=== PATIENT | female | born 1950 ===

== ENCOUNTER → 2023-09-27 | Outpatient (CLI) | payer OTHER ==
[2023-09-27 11:34] LABS: Albumin, Blood 3.6 g/dL (3.4-5.0); Albumin/Globulin Ratio 0.8 (0.8-1.8); Bilirubin, Total 0.5 mg/dL (0.1-1.0); Bun/Creatinine Ratio 14.9 (12.0-20.0); Calcium, Blood 9.1 mg/dL (8.5-10.1); Creatinine, Blood 1.61 mg/dL (0.40-1.00); Globulin, Blood 4.4 g/dL (2.2-4.0); Potassium, Blood 3.1 mmol/L (3.5-5.5)
== END | disposition home or self-care (01) ==
LOC: LAB 08:31 → LAB SHORT 08:31
PROVIDERS: Physician Assistant
DX: E87.6 Hypokalemia (principal)
CPT/HCPCS: 36415; 80053

== ENCOUNTER 2024-03-10 02:55 | Inpatient (IN) | payer OTHER ==
[~2024-03-10] VITALS: Ht 152.4 cm; Wt 70.7 kg
[2024-03-10] MEDS ORDERED: Albuterol 2.5 MG/3 ML VIAL INH SCH (03:00)
[2024-03-10] MEDS ORDERED: IPRAT-ALBUT 0.5-3 ML NEB (03:09)
[2024-03-10] MEDS ORDERED: ELIQUIS5 M3 PO (03:09)
[2024-03-10] MEDS ORDERED: LIPITOR80 MG PO (03:10)
[2024-03-10] MEDS ORDERED: GABA100 PO (03:10)
[2024-03-10] MEDS ORDERED: CARVEDILOL6.25 MG PO (03:10)
[2024-03-10] MEDS ORDERED: OMEP20ER PO (03:10)
[2024-03-10] MEDS ORDERED: KLOR-CON 1010 ME9 PO (03:10)
[2024-03-10] MEDS ORDERED: SPIRIVA RESPIMAT4 G3 INH (03:10)
[2024-03-10] MEDS ORDERED: SOAANZ20 M3 PO (03:11)
[2024-03-10] MEDS ORDERED: DIGOX125 MC1 PO (03:11)
[2024-03-10] MEDS ORDERED: OZEMPIC0.25 MG/02 SQ (03:11)
[2024-03-10] MEDS ORDERED: PROZAC2010 PO (03:11)
[2024-03-10 03:16] LABS: BASOPHILS PERCENT AUTO 1 % (0-2); EOSINOPHILS PERCENT AUTO 4 % (0-6); Hematocrit 40.9 % (33.0-51.0); Hemoglobin 12.6 g/dL (11.5-16.0); IMMATURE GRAN ABSOLUTE AUTO 0.04 K/mm3 (0.00-0.10); IMMATURE GRAN PERCENT AUTO 0 % (0-1); LYMPHOCYTES ABSOLUTE AUTO 3.29 K/mm3 (0.84-5.20); LYMPHOCYTES PERCENT AUTO 24 % (21-46); MONOCYTES ABSOLUTE AUTO 0.86 K/mm3 (0.16-1.47); MONOCYTES PERCENT AUTO 6 % (4-13); Mean Corpuscular HGB 26.3 pg (26.0-34.0); Mean Corpuscular HGB Conc 30.8 g/dL (31.5-36.5); Mean Corpuscular Volume 85 fL (80-100); Mean Platelet Volume 10.1 fL (9.1-12.4); NEUTROPHILS ABSOLUTE AUTO 9.05 K/mm3 (1.96-9.15); NEUTROPHILS PERCENT AUTO 65 % (41-73); Platelet Count 360 K/mm3 (150-400); RDW Coefficient Variation 15.4 % (11.7-14.2); RDW Standard Deviation 48.2 fL (35.1-46.3); White Blood Cell Count 13.94 K/mm3 (4.00-11.30)
[2024-03-10 03:38] LABS: Albumin, Blood 3.3 g/dL (3.4-5.0); Albumin/Globulin Ratio 0.9 (0.8-1.8); Bilirubin, Total 0.5 mg/dL (0.1-1.0); Bun/Creatinine Ratio 19.8 (12.0-20.0); Creatinine, Blood 0.91 mg/dL (0.40-1.00); Globulin, Blood 3.8 g/dL (2.2-4.0); Magnesium, Blood 1.8 mg/dL (1.6-2.4); Potassium, Blood 3.9 mmol/L (3.5-5.5); Total Protein, Blood 7.1 g/dL (6.4-8.2)
[2024-03-10] MEDS ORDERED: Magnesium Sulf 2 GM/Water 50ML 50 ML IV ONE (03:50)
[2024-03-10 04:06] LABS: Influenza A, PCR NEGATIVE (NEGATIVE); Influenza B, PCR NEGATIVE (NEGATIVE); Resp Syncytial Virus, PCR NEGATIVE (NEGATIVE); SARS-Cov-2 (COVID-19) PCR, MMC NEGATIVE (NEGATIVE)
[2024-03-10] MEDS ORDERED: Azithromycin 250 MG Tab PO ONE (04:50)
[2024-03-10] MEDS ORDERED: FLU VACC TS2024-25(6MOS UP)/PF 45 MCG/0.5 ML SYRINGE IM SCH (06:15)
[2024-03-10] MEDS ORDERED: Ipratropium/Albuterol SulF 2.5-0.5MG/3 ML Amp INH SCH ×2 (06:15→09:45)
[2024-03-10] MEDS ORDERED: Albuterol 2.5 MG/3 ML VIAL INH PRN (06:15)
[2024-03-10] MEDS ORDERED: MethylPREDNISolone Sod Succ 125 MG Vial IV SCH (08:00)
[2024-03-10 09:41] VITALS: BP 152/69
[2024-03-10] MEDS ORDERED: Gabapentin 100 MG Cap PO PRN (15:35)
[2024-03-10] MEDS ORDERED: Tiotropium Bromide 2.5 MCG/ACT MIST INHAL (10 ACT/4 GM) INH SCH (16:10)
[2024-03-10 16:35] VITALS: BP 135/86
[2024-03-10] MEDS ORDERED: Carvedilol 6.25 MG Tab PO SCH (17:00)
[2024-03-10 19:50] VITALS: BP 120/57
--- NOTE | 2024-03-10 19:52 | NUR ---
ADMIT/ SHIFT SUMMARY PATIENT CAME UP FROM ER ON 4L NC SATTING >92%.CONT PULSE OX MONITORING AND FLUCTUATING BETWEEN 90-96%. IV STEROIDS GIVEN. RT ADMINISTERING NEB TREATMENTS Q4. DR SALAZAR RESTARTED HOME MEDS. PATIENT IS A STAND-BY TO THE BATHROOM, CALLS APPROPRIATELY. ABLE TO MAKE NEEDS KNOWN. NO COMPLAINTS OF PAIN. HAS A PRODUCTIVE COUGH WITH CLEAR OUTPUT. SKIN INTACT. CALL LIGHT IN REACH. PATIENT EDUCATED ON NOT TO USE HOME MEDS, INHALER/PILL BOX PLACED IN BAG IN CLOSET, PATIENT VERBALLY AGREED.
[2024-03-10] MEDS ORDERED: Guaifenesin/Dextromethorphan Syrup 5 ML UDC PO PRN (20:30)
[2024-03-10] MEDS ORDERED: Apixaban 5 MG Tab PO SCH (21:00)
[2024-03-10] MEDS ORDERED: Melatonin 5 MG Tablet PO PRN (21:30)
[2024-03-11 03:09] VITALS: BP 133/76
[2024-03-11] MEDS ORDERED: Omeprazole 20 MG CapCR PO SCH (06:00)
[2024-03-11 07:06] VITALS: BP 121/61
--- NOTE | 2024-03-11 07:28 | NUR ---
SHIFT SUMMARY: A&Ox4, PLEASANT AND COOPERATIVE WITH CARE. VSS ON 4L NC, COMPANY MINER BLASTING IN PLACE. DENIES PAIN. TOLERATING A REGULAR DIET. PT IS SBA/INDEPENDENT TO BR. VOIDING IN TOILET, NO BM THIS SHIFT. BED IN LOWEST POSITION, CALL LIGHT WITHIN REACH. CALLS APPROPRIATELY AND IS ABLE TO ADVOCATE NEEDS EFFECTIVELY.
[2024-03-11] MEDS ORDERED: Torsemide 20 MG TAB PO SCH (09:00)
[2024-03-11] MEDS ORDERED: Enoxaparin 40 MG/0.4 ML SYR SC SCH (09:00)
[2024-03-11] MEDS ORDERED: FLUoxetine HCL 20 MG CAP PO SCH (09:00)
[2024-03-11] MEDS ORDERED: Azithromycin 250 MG Tab PO SCH (09:00)
[2024-03-11] MEDS ORDERED: Atorvastatin 40 MG Tab PO SCH (09:00)
[2024-03-11] MEDS ORDERED: ALBU90OI INH (11:53)
[2024-03-11 15:11] VITALS: BP 123/62
--- NOTE | 2024-03-11 17:30 | NUR ---
SHIFT SUMMARY PT IS A/OX4. SBA TO BATHROOM TO ASSIST WITH LINES AND D/T SOB WITH EXERTION. PT ON 3L O2 THROUGHOUT THIS SHIFT, SATS MAINTAINING >88% AT REST, DROPPING IN THE 80'S DURING EXERTION. PRN RUBUTUSSIN GIVEN X2 THIS SHIFT. PT REPORT INCREASING COUGH AND PHLEGM PRODUCTION THIS AFTERNOON. PT COOPERATIVE WITH CARE AND CALLS APPROPRIATELY.
[2024-03-11 19:29] VITALS: BP 112/72
--- NOTE | 2024-03-12 04:18 | NUR ---
SHIFT SUMMARY ADMITTED FOR COPD EXACERBATION. FULL CODE. PLAN IS FOR STEROIDS, PO ANTIB RX, AND RT TX'S. REGULAR DIET. A&O X4. STANDBY ASSIST - BRP. 3 LPM O2 IS BASELINE. SHE DOES LIVE ALONE. NO NEW CONCERNS THIS SHIFT.
[2024-03-12 04:31] VITALS: BP 117/44
[2024-03-12 05:20] LABS: BASOPHILS ABSOLUTE AUTO 0.02 K/mm3 (0.00-0.23); BASOPHILS PERCENT AUTO 0 % (0-2); EOSINOPHILS PERCENT AUTO 0 % (0-6); Hematocrit 35.8 % (33.0-51.0); Hemoglobin 11.2 g/dL (11.5-16.0); IMMATURE GRAN ABSOLUTE AUTO 0.14 K/mm3 (0.00-0.10); IMMATURE GRAN PERCENT AUTO 1 % (0-1); LYMPHOCYTES ABSOLUTE AUTO 1.05 K/mm3 (0.84-5.20); LYMPHOCYTES PERCENT AUTO 6 % (21-46); MONOCYTES ABSOLUTE AUTO 0.27 K/mm3 (0.16-1.47); MONOCYTES PERCENT AUTO 2 % (4-13); Mean Corpuscular HGB 26.2 pg (26.0-34.0); Mean Corpuscular HGB Conc 31.3 g/dL (31.5-36.5); Mean Corpuscular Volume 84 fL (80-100); Mean Platelet Volume 10.5 fL (9.1-12.4); NEUTROPHILS PERCENT AUTO 92 % (41-73); Platelet Count 334 K/mm3 (150-400); RDW Coefficient Variation 15.8 % (11.7-14.2); Red Blood Cell Count 4.28 M/mm3 (3.80-5.20); White Blood Cell Count 18.58 K/mm3 (4.00-11.30)
[2024-03-12 05:32] LABS: Albumin, Blood 2.9 g/dL (3.4-5.0); Bilirubin, Total 0.3 mg/dL (0.1-1.0); Bun/Creatinine Ratio 29.5 (12.0-20.0); Calcium, Blood 9.2 mg/dL (8.5-10.1); Creatinine, Blood 1.32 mg/dL (0.40-1.00); Potassium, Blood 3.9 mmol/L (3.5-5.5); Total Protein, Blood 5.9 g/dL (6.4-8.2)
[2024-03-12 07:51] VITALS: BP 126/64
[2024-03-12] MEDS ORDERED: Ipratropium/Albuterol SulF 2.5-0.5MG/3 ML Amp INH SCH (11:25)
[2024-03-12] MEDS ORDERED: Acetylcysteine 200 MG/ML 4ML Vial INH SCH (11:25)
[2024-03-12] MEDS ORDERED: PredniSONE 20 MG Tab PO SCH (15:00)
[2024-03-12] MEDS ORDERED: Cefdinir 300 MG Cap PO SCH (15:00)
[2024-03-12 16:01] VITALS: BP 115/73
--- NOTE | 2024-03-12 17:49 | NUR ---
SHIFT SUMMARY: PT A/O X4. PLEASANT AND COOPERATIVE WITH CARE. PT REMAINS SOB WITH HARSH, BARKING COUGH. COUGH MEDS GIVEN X2 THIS SHIFT. PT REMAINS ON 4L NC. ON CONT BIOX. IV STEROIDS CHANGED PT PO PREDNISONE. PT WILL NEED HOME 02 EVAL PRIOR TO D/C. CALL LIGHT IN REACH. BED IN LOWEST POSITION.
[2024-03-12 19:18] VITALS: BP 132/93
[2024-03-13 03:05] VITALS: BP 123/60
--- NOTE | 2024-03-13 04:47 | NUR ---
SHIFT SUMMARY PATIENT HAD NO ACUTE CHANGES. AXOX 4 AND SBA TO BR. ON 3.5 L O2 NC. ROBITTUSIN 10 mL GIVEN FOR COUGH AND MELATONIN GIVEN FOR INSOMNIA. RT IN FOR BREATHING TX. PIV INTACT. DENIES CHEST PAIN, SOB, AND N/V. VSS/AFEBRILE. SLEPT MOST OF THE SHIFT. CALL LIGHT IN REACH. BED IN LOWEST POSITION. WILL CONTINUE TO MONITOR UNTIL DAY SHIFT NURSE ASSUMES CARE.
[2024-03-13 07:30] VITALS: BP 123/62
[2024-03-13] MEDS ORDERED: Ipratropium/Albuterol SulF 2.5-0.5MG/3 ML Amp INH SCH (13:40)
[2024-03-13 15:41] VITALS: BP 120/57
[2024-03-13] MEDS ORDERED: Acetylcysteine 200 MG/ML 30ml Inhalation INH SCH (17:00)
--- NOTE | 2024-03-13 17:52 | NUR ---
PT STATES FEELS SOME BETTER TODAY WITH REGULAR DOSING OF ROBITUSSIN. CONTINUES TO BE ON 4L O2. NO C/O PAIN. AMBULATES SELF TO BATHROOM. STATES IS HOPEFUL TO BE STABLE ENOUGH TO GO HOME TOMORROW. BED IN LOW POSITION, CALL LITE IN REACH, CALLS APPROP
[2024-03-13 20:35] VITALS: BP 120/57
--- NOTE | 2024-03-14 04:07 | NUR ---
SHIFT SUMMARY PATIENT HAD NO ACUTE CHANGES. AXOX 4 AND SBA TO BR. ON 3.5 L O2 NC. RT IN FOR BREATHING TX. ROBUTUSSIN 10 mL GIVEN FOR COUGH X TWO. DENIES CHEST PAIN AND N/V. VSS/AFEBRILE. PV INTCT. MELATONIN 5 MG GIVEN FOR INSOMNIA. COOPERATIVE WITH CARE. CALL LIGHT IN REACH. BED IN LOWEST POSITION. WILL CONTINUE TO MONITOR UNTIL DAY SHIFT NURSE ASSUMES CARE.
[2024-03-14 05:39] VITALS: BP 130/87
[2024-03-14 07:02] VITALS: BP 127/82
[2024-03-14] MEDS ORDERED: Acetylcysteine 200 MG/ML 4ML Vial INH SCH (11:20)
--- NOTE | 2024-03-14 14:53 | NUR ---
PT RESTING QUIETLY IN BED, HAS BEEN PLEASANT AND COOPERATIVE T/O THE DAY, UP INDEP IN THE ROOM, DOES GET SOB WITH ANY ACTIVITY, O2 REMAINS AT 4L, WILL CONT TO MONITOR
[2024-03-14 15:47] VITALS: BP 90/46
--- NOTE | 2024-03-14 17:03 | NUR ---
REPORT ON PT WAS TAKEN @ 8013 FROM STUART RASMUSSEN. NO CHANGES HAVE BEEN MADE
[2024-03-14 17:17] VITALS: BP 118/66
[2024-03-14 20:35] VITALS: BP 120/67
[2024-03-14 20:45] VITALS: BP 109/62
--- NOTE | 2024-03-15 04:54 | NUR ---
SHIFT SUMMARY 73 YR F ADMITTED ON 03/12/24. FULL CODE. NO ACUTE CHANGES THIS SHIFT. PT APPEARS TO HAVE RESTED COMFORTABLY THROUGHOUT THIS SHIFT. NO C/O PASIN OR DISCOMFORT. SHE IS PLEASANT AND COOPERATIVE W/ CARE. INDEPENDANT TO THE BATHROOM. 3 L O2 BY NC. BED IN LOW POSITION AND CALL LIGHT IN REACH.
[2024-03-15 06:03] VITALS: BP 111/56
[2024-03-15 08:07] VITALS: BP 140/109
[2024-03-15 09:54] VITALS: BP 99/55
[2024-03-15 15:21] VITALS: BP 113/87
--- NOTE | 2024-03-15 15:46 | NUR ---
SHIFT SUMMARY PATIENT CONTINUES TO REQUIRE 3 LITERS CONTINUOUS OXYGEN, PULSE OX IN PLACE. LUNG SOUNDS WHEEZY, COARSE, RHONCHI, DIMINISHED. REPORTS FEELING CHEST HEAVINESS WHEN BREATHING TREATMENTS ARE NOT ADMINISTERED CLOSE TO "ON TIME". A/O X4, PLEASANT DEMEANOR. ABLE TO WALK TO BATHROOM INDEPENDENTLY. ABLE TO MAKE NEEDS KNOWN. CALL LIGHT IN REACH, CARES ONGOING.
[2024-03-15] MEDS ORDERED: Lactobacil 2-S.Thermo-Bifido 1 1 Cap PO SCH (18:00)
[2024-03-15 19:44] VITALS: BP 97/46
--- NOTE | 2024-03-16 03:55 | NUR ---
SHIFT SUMMARY 73 YR F ADMITTED ON 03/12/24. FULL CODE. NO ACUTE CHANGES THIS SHIFT. PT STATES SHE IS FEELING BETTER WITH SCHEDULED BREATHING TREATMENTS AND COUGH MEDICINE. NO C/O PAIN OR DISCOMFORT THIS SHIFT. SHE IS PLEASANT, INDEPENDANT, AND COOPERATIVE WITH CARE. O2 SATS ARE MAINTAINING IN THE 90'S. BED IN LOW POSITION AND CALL LIGHT IN REACH.
[2024-03-16 04:07] VITALS: BP 106/63
[2024-03-16 05:18] LABS: BASOPHILS ABSOLUTE AUTO 0.02 K/mm3 (0.00-0.23); BASOPHILS PERCENT AUTO 0 % (0-2); EOSINOPHILS ABSOLUTE AUTO 0.05 K/mm3 (0.00-0.68); EOSINOPHILS PERCENT AUTO 0 % (0-6); Hematocrit 35.2 % (33.0-51.0); Hemoglobin 11.6 g/dL (11.5-16.0); IMMATURE GRAN ABSOLUTE AUTO 0.08 K/mm3 (0.00-0.10); IMMATURE GRAN PERCENT AUTO 1 % (0-1); LYMPHOCYTES ABSOLUTE AUTO 3.82 K/mm3 (0.84-5.20); LYMPHOCYTES PERCENT AUTO 26 % (21-46); MONOCYTES ABSOLUTE AUTO 1.16 K/mm3 (0.16-1.47); MONOCYTES PERCENT AUTO 8 % (4-13); Mean Corpuscular HGB 26.3 pg (26.0-34.0); Mean Corpuscular Volume 80 fL (80-100); NEUTROPHILS ABSOLUTE AUTO 9.47 K/mm3 (1.96-9.15); NEUTROPHILS PERCENT AUTO 65 % (41-73); RDW Coefficient Variation 15.2 % (11.7-14.2); RDW Standard Deviation 43.9 fL (35.1-46.3); Red Blood Cell Count 4.41 M/mm3 (3.80-5.20)
[2024-03-16 05:53] LABS: Bun/Creatinine Ratio 29.4 (12.0-20.0); Calcium, Blood 8.4 mg/dL (8.5-10.1); Creatinine, Blood 0.99 mg/dL (0.40-1.00)
[2024-03-16 06:30] LABS: Mean Platelet Volume 10.4 fL (9.1-12.4); Platelet Count 292 K/mm3 (150-400)
[2024-03-16 07:31] VITALS: BP 108/64
[2024-03-16 12:46] VITALS: BP 115/97
[2024-03-16] MEDS ORDERED: Metoprolol Tartrate 1 MG/ML 5 ML VIAL IV PRN (13:35)
[2024-03-16] MEDS ORDERED: CEFD300 PO (14:41)
[2024-03-16] MEDS ORDERED: VISBIOME 112.51 EACH PO (14:42)
[2024-03-16] MEDS ORDERED: PRED20 PO (14:42)
[2024-03-16] MEDS ORDERED: Q-Tussin100 MG/5 M PO (14:42)
[2024-03-16 14:49] VITALS: BP 106/62
--- NOTE | 2024-03-16 18:22 | NUR ---
SHIFT SUMMARY PT A&OX4 AND ANSWERS QUESTIONS APPROPRIATELY. PT RECEIVED SCHEDULED AND PRN MEDICATIONS. PT TO BE DISCHARGED TODAY BEFORE HR ELEVATED INTO THE 160S. EKG SHOWED AFIB W/ RVR. DR POWELL NOTIFIED, PT PUT ON CONTINUOUS TELEMETRY. PT TO BE HELD ONE MORE NIGHT FOR OBSERVATION. REMAINING VSS, NO ACUTE EVENTS AT THIS TIME. PT REPOSITIONED INDEPENDENTLY. PT RECEIVED A SHOWER INDEPENDENTLY. FALL PRECAUTIONS IN PLACE AND CALL LIGHT IN REACH.
[2024-03-16 21:53] VITALS: BP 127/50
--- NOTE | 2024-03-17 03:18 | NUR ---
SHIFT SUMMARY PT IS PLEASANT, A&O X4, AMBULATES INDEPENDENTLY WITHIN THE HOSPITAL ROOM. NO ACUTE EVENTS DURING THIS SHIFT, TELE: SR@ 75. VSS. PRN GABAPENTIN, MELATONIN AND ROBITUSSIN ADMINISTERED ORDERED AT HS. PT DENIES PAIN/DISCOMFORT OR SOB. BED AT THE LOWEST POSITION, CALL LIGHT W/I REACH. PT IS ABLE TO MAKE HER NEEDS KNOWN AND IS COOPERATIVE WITH CARE. PT AWAITING TO D/C TODAY FROM THE HOSPITAL.
[2024-03-17 05:37] LABS: BASOPHILS ABSOLUTE AUTO 0.01 K/mm3 (0.00-0.23); BASOPHILS PERCENT AUTO 0 % (0-2); EOSINOPHILS ABSOLUTE AUTO 0.03 K/mm3 (0.00-0.68); EOSINOPHILS PERCENT AUTO 0 % (0-6); Hematocrit 36.3 % (33.0-51.0); Hemoglobin 11.5 g/dL (11.5-16.0); IMMATURE GRAN ABSOLUTE AUTO 0.07 K/mm3 (0.00-0.10); IMMATURE GRAN PERCENT AUTO 1 % (0-1); LYMPHOCYTES ABSOLUTE AUTO 3.81 K/mm3 (0.84-5.20); LYMPHOCYTES PERCENT AUTO 25 % (21-46); MONOCYTES ABSOLUTE AUTO 1.14 K/mm3 (0.16-1.47); MONOCYTES PERCENT AUTO 8 % (4-13); Mean Corpuscular HGB 26.5 pg (26.0-34.0); Mean Corpuscular HGB Conc 31.7 g/dL (31.5-36.5); Mean Corpuscular Volume 84 fL (80-100); Mean Platelet Volume 10.6 fL (9.1-12.4); NEUTROPHILS ABSOLUTE AUTO 10.09 K/mm3 (1.96-9.15); NEUTROPHILS PERCENT AUTO 67 % (41-73); Platelet Count 290 K/mm3 (150-400); RDW Coefficient Variation 15.4 % (11.7-14.2); RDW Standard Deviation 46.4 fL (35.1-46.3); Red Blood Cell Count 4.34 M/mm3 (3.80-5.20); White Blood Cell Count 15.15 K/mm3 (4.00-11.30)
[2024-03-17 06:08] LABS: Bun/Creatinine Ratio 26.7 (12.0-20.0); Calcium, Blood 8.5 mg/dL (8.5-10.1); Creatinine, Blood 1.01 mg/dL (0.40-1.00); Potassium, Blood 3.8 mmol/L (3.5-5.5)
[2024-03-17 06:48] VITALS: BP 110/69
[2024-03-17 07:54] VITALS: BP 127/72
[2024-03-17] MEDS ORDERED: Sennosides 8.6 MG Tab PO PRN (13:15)
[2024-03-17] MEDS ORDERED: Mag Hydrox/AL Hydrox/Simeth 30 ML UDC PO PRN (13:15)
[2024-03-17] MEDS ORDERED: Polyethylene Glycol 3350 17 gm PO PRN (13:15)
[2024-03-17 16:25] VITALS: BP 110/58
--- NOTE | 2024-03-17 18:21 | NUR ---
SHIFT SUMMARY. PATIENT IS A&OX4 AND INDEPENDENT IN ROOM. PATIENT HAS A PRODUCTIVE HARSH COUGH THAT SHE TAKES PRN COUGH SYRUP FOR WITH REPORTED IMPROVEMENT. PATIENT IS PLEASANT AND COOPERTAIVE WITH CARE. PATIENT CALLS APPROPRIATELY. PATIENT HAS TELE ON WITH LEADS IN PLACE-NO REPORTED EVENTS THIS SHIFT. PATIENT CONTINUES TO HAVE WHEEZING T/O LUNGS. PLAN IS RE-EVALUATE AND POSSIBLE DISCHARGE HOME ON 03/18/24. BED IS LOCKED IN THE LOWEST POSITION WITH CALL LIGHT IN REACH. CARE IS ONGOING.
[2024-03-17 19:11] VITALS: BP 120/67
--- NOTE | 2024-03-18 03:31 | NUR ---
COVER CUTTER SUMMARY VSS. ALERT AND ORIENETED. COOPERATIVE WITH CARE. CHEERFUL AFFECT. UP AD LALITA, CONTINENT. ON ROOM AIR, SATS IN THE 90'S. MED TELE - SR IN THE 70'S. LUNG SOUNDS CONGESTED, COUGH MEDS GIVEN. HAS BEEN RESTING QUIETLY WITH FEW INERRUPTIONS. ABLE TO REPOSITION SELF IN BED WITHOUT ASSIST FOR COMFORT/SKIN MAINTENENCE. CALL LIGHT IN REACH, RAILS UP X 2 AND BED IN LOW POSITION FOR SAFETY. WILL CONTINUE TO MONITOR
[2024-03-18 03:35] VITALS: BP 115/57
[2024-03-18 07:13] VITALS: BP 115/64
--- NOTE | 2024-03-18 15:46 | NUR ---
DISCHARGE NOTE PATIENT A/OX4, ABLE TO MAKE NEEDS KNOWN. INDEPENDENT IN ROOM. PLEASANT AND COOPERATIVE WT CARE. PATIENT DENIES SHORTNESS OF BREATH, AUSCULTATION OF UPPER BILATERAL LOBES COARSE CRACKLES. CONTINUES WITH INTERMITTENT HACKING PRODUCTIVE COUGH. PATIENT DENIES PAIN. TELEMETRY AND PIV REMOVED PRIOR TO DISCHARGE. DISCHARGE MEDICATIONS AND INSTRUCTIONS DISCUSSED WITH PATIENT AND PATIENT AGREEABLE WITH DISCHARGE PLAN. MEDICATIONS FAXED TO [facility], PER PATIENT REQUEST. PATIENT ASSISTED TO HER SISTER'S VEHICLE VIA WHEELCHAIR AND [facility] STAFF. NO OTHER CONCERNS.
== END 2024-03-18 14:32 | disposition home or self-care (01) | DRG 189 ==
LOC: ER 02:55 → MEDS 02:56
PROVIDERS: Family Medicine; Internal Medicine; Student in an Organized Health Care Education/Training Program; ADMIT Internal Medicine
DX: J96.21 Acute and chronic respiratory failure with hypoxia (principal); J44.1 Chronic obstructive pulmonary disease with (acute) exacerbation; I24.89 Other forms of acute ischemic heart disease; R65.10 Systemic inflammatory response syndrome (SIRS) of non-infectious origin without acute organ dysfunction; I48.91 Unspecified atrial fibrillation; Z79.01 Long term (current) use of anticoagulants; N18.30 Chronic kidney disease, stage 3 unspecified; I12.9 Hypertensive chronic kidney disease with stage 1 through stage 4 chronic kidney disease, or unspecified chronic kidney disease; D72.828 Other elevated white blood cell count; T38.0X5A Adverse effect of glucocorticoids and synthetic analogues, initial encounter
CPT/HCPCS: 0241U; 36415; 71045; 80048; 80053; 82565; 83735; 83880; 84145; 84484; 85025; 85049; 93005; 93010; 94640; 94644; 94664; 94760; 94762; 96365; 96375; 96376; 99285-25; A9270; G0378; J2919; J3475; J7512

== ENCOUNTER 2024-06-15 05:37 | Inpatient (IN) | payer OTHER ==
[~2024-06-15] VITALS: Ht 152.4 cm; Wt 75.0 kg
[~2024-06-15 05:37] MED LIST: ALBU90OI INH; CARVEDILOL6.25 MG PO; CEFD300 PO; DIGOX125 MC1 PO; ELIQUIS5 M3 PO; GABA100 PO; IPRAT-ALBUT 0.5-3 ML NEB; KLOR-CON 1010 ME9 PO; LIPITOR80 MG PO; OMEP20ER PO; OZEMPIC0.25 MG/02 SQ; PRED20 PO; PROZAC2010 PO; Q-Tussin100 MG/5 M PO; SOAANZ20 M3 PO; SPIRIVA RESPIMAT4 G3 INH; VISBIOME 112.51 EACH PO
[2024-06-15 05:52] LABS: Base Excess Venous 8.1 mmol/L; Bicarbonate Venous 30.1 mmol/L (24.0-30.0); PCO2 Venous 61.1 mmHg (38-42); pH Blood Venous 7.35 (7.34-7.37)
[2024-06-15 05:52] LABS: BASOPHILS ABSOLUTE AUTO 0.08 K/mm3 (0.00-0.23); BASOPHILS PERCENT AUTO 1 % (0-2); EOSINOPHILS ABSOLUTE AUTO 0.52 K/mm3 (0.00-0.68); EOSINOPHILS PERCENT AUTO 4 % (0-6); Hematocrit 39.6 % (33.0-51.0); Hemoglobin 12.2 g/dL (11.5-16.0); IMMATURE GRAN ABSOLUTE AUTO 0.05 K/mm3 (0.00-0.10); IMMATURE GRAN PERCENT AUTO 0 % (0-1); LYMPHOCYTES ABSOLUTE AUTO 2.36 K/mm3 (0.84-5.20); LYMPHOCYTES PERCENT AUTO 19 % (21-46); MONOCYTES PERCENT AUTO 6 % (4-13); Mean Corpuscular HGB 26.6 pg (26.0-34.0); Mean Corpuscular HGB Conc 30.8 g/dL (31.5-36.5); Mean Corpuscular Volume 86 fL (80-100); Mean Platelet Volume 9.4 fL (9.1-12.4); NEUTROPHILS PERCENT AUTO 70 % (41-73); Platelet Count 326 K/mm3 (150-400); RDW Standard Deviation 50.6 fL (35.1-46.3); Red Blood Cell Count 4.59 M/mm3 (3.80-5.20); White Blood Cell Count 12.51 K/mm3 (4.00-11.30)
[2024-06-15] MEDS ORDERED: Albuterol 2.5 MG/3 ML VIAL INH ONE (05:55)
[2024-06-15] MEDS ORDERED: CefTRIAXone Sodium 1,000 MG in NS 50 ML IV ONE (06:05)
[2024-06-15] MEDS ORDERED: Doxycycline Hyclate 100 MG in Dextrose 5% 250 ML IV ONE (06:05)
[2024-06-15] MEDS ORDERED: Doxycycline Hyclate 100 MG TAB PO ONE (06:05)
[2024-06-15] MEDS ORDERED: NS 1,000 ML IV SCH (06:05)
[2024-06-15 06:10] LABS: Albumin, Blood 3.3 g/dL (3.4-5.0); Albumin/Globulin Ratio 0.9 (0.8-1.8); Bilirubin, Total 0.4 mg/dL (0.1-1.0); Creatinine, Blood 0.81 mg/dL (0.40-1.00); Globulin, Blood 3.6 g/dL (2.2-4.0); Magnesium, Blood 1.9 mg/dL (1.6-2.4); Potassium, Blood 3.5 mmol/L (3.5-5.5); Total Protein, Blood 6.9 g/dL (6.4-8.2)
[2024-06-15 06:29] LABS: Influenza A, PCR NEGATIVE (NEGATIVE); Influenza B, PCR NEGATIVE (NEGATIVE); Resp Syncytial Virus, PCR NEGATIVE (NEGATIVE); SARS-Cov-2 (COVID-19) PCR, MMC NEGATIVE (NEGATIVE)
[2024-06-15] MEDS ORDERED: Albuterol 2.5 MG/3 ML VIAL INH SCH (06:45)
[2024-06-15] MEDS ORDERED: FLU VACC TS2024-25(6MOS UP)/PF 45 MCG/0.5 ML SYRINGE IM SCH (07:35)
[2024-06-15] MEDS ORDERED: Lactobacil 2-S.Thermo-Bifido 1 1 Cap PO SCH (09:00)
[2024-06-15] MEDS ORDERED: Albuterol 2.5 MG/3 ML VIAL INH PRN (11:05)
[2024-06-15] MEDS ORDERED: Ipratropium/Albuterol SulF 2.5-0.5MG/3 ML Amp INH SCH (11:05)
[2024-06-15] MEDS ORDERED: Insulin Regular 100 UNIT/ML 10ML Vial SC SCH (11:30)
[2024-06-15] MEDS ORDERED: MethylPREDNISolone Sod Succ 125 MG Vial IV SCH (12:00)
[2024-06-15 12:47] VITALS: BP 133/89
[2024-06-15] MEDS ORDERED: Gabapentin 100 MG Cap PO PRN (13:35)
[2024-06-15 15:45] VITALS: BP 126/62
[2024-06-15] MEDS ORDERED: LORazepam 2 MG/ML 1ML Injection IV PRN (16:50)
[2024-06-15] MEDS ORDERED: Guaifenesin/Dextromethorphan Syrup 5 ML UDC PO PRN (16:55)
[2024-06-15] MEDS ORDERED: Carvedilol 6.25 MG Tab PO SCH (17:00)
--- NOTE | 2024-06-15 17:34 | NUR ---
SHIFT SUMMARY PT REMAINS ALERT AND ORIENTED. PT ANXIOUS ABOUT BREATHING THIS AFTERNOON AND MEDICATED PER EMAR. PT HAS BEEN ON BIPAP FOR APPROXIMATELY 2 AND HALF HOURS AT 16/8 AND 65% FIO2 WITH SATS ABOVE 89%. RR IN THE MID TO HIGH 20'S. PT STATES BREATHING FEELS LABORED. FAN PROVIDED. PT ABLE TO STAND AND TRANSFER TO BSC, BUT WAS INCONTINENT OF URINE. PT CLEANED AND NEW ATTENDS APPLIED. HR REMAINS SINUS TACH 110'S. PT ABLE TO REPOSITION HERSELF INDEPENDENTLY. WILL REPORT OFF TO ONCOMING RN
[2024-06-15 19:14] VITALS: BP 126/57
--- NOTE | 2024-06-15 19:27 | NUR ---
ASSUMPTION NOTE: THIS RN TO ASSUME CARE. DAY NURSE AND THIS RN DID BEDSIDE SHIFT REPORT AND PATIENT REPORTED HIGH ANXIETY WHEN THIS RN MENTIONED PLACING THE BIPAP ON DUE TO PATIENT SATTING AROUND 90% ON 15 LITERS CURRENTLY. PATIENT STATED SHE WOULD PREFER NOT TOO BUT WILL DO WHAT'S NEEDED TO GET HER BETTER. VITAL SIGNS TAKEN, PATIENT STABLE AND LAB CAME IN TO DRAW PATIENTS TROPONIN. PATIENT HAS CALL LIGHT WITHIN REACH, BED IN LOWEST POSITION & DENYING NEEDING ANYTHING AT THE MOMENT.
[2024-06-15] MEDS ORDERED: GuaiFENesin 600 MG TabCR PO SCH (21:00)
[2024-06-15] MEDS ORDERED: Doxycycline Hyclate 100 MG in Dextrose 5% 250 ML IV SCH (21:00)
[2024-06-15] MEDS ORDERED: Apixaban 5 MG Tab PO SCH (21:00)
[2024-06-15] MEDS ORDERED: HyDROXyzine HCl 25 MG Tab PO PRN (21:06)
[2024-06-16] VITALS (8 sets, daily range): BP systolic 105–142; BP diastolic 51–117
--- NOTE | 2024-06-16 01:11 | NUR ---
REFUSAL OF BIPAP: PATIENT TOOK OF BIPAP MACHINE SHE STATED "THE NOSE PIECE YOU PUT ON WAS DROWNING ME, I KEPT BREATHING IT IN AND IT MADE IT HARDER TO BREATH". THIS RN NOTIFIED HER WE COULD ADJUST IT AND PLACE IT WHERE IT SHOULD BE. PATIENT REFUSED & PLACED THE NASAL CANNULA ON. PATIENT CONTINEUS TO DESAT IN THE 80'S AND WAS COUGHING. THIS RN EDUCATED PATIENT SHOULD WEAR HER BIPAP MACHINE HER OXYGEN SATURATION CONTINUES TO DROP AND SHE IS AT THE HIGHEST O2 LEVEL WHILE WEARING THE NASAL CANNULA. PATIENT REFUSED AND STATED "WE'LL SEE IF I WEAR THAT AGAIN". THIS RN GAVE HER SOME ANTI ANXIETY MEDS AND STATED WE WOULD PUT THE BIPAP ON SHORTLY ONCE THE ORAL MEDICATION KICKED IN. PT STATED "WE WILL SEE IF I CAN WEAR THAT". PATIENT AWARE AND EDUCATED THAT IF SHE CANNOT TOLERATE THE BIPAP AND CONTINEUS TO DESAT WHILE WEARING THE NASAL CANNULA THERE IS A CHANCE SHE WILL NEED TO BE INTUBATED. PATIENT VERBALIZED UNDERSTANDING BY STATING "I KNOW, I HAVE HAD IT IN THE PAST". THIS RN NOTIFIED CHARGE AND HE IS AWARE.
--- NOTE | 2024-06-16 04:48 | NUR ---
END OF SHIFT SUMMARY: PATIENT IS ALERT AND ORIENTED X4 AND COOPERATIVE WITH HER CARE. IS ABLE TO MAKE NEEDS KNOWN, USES CALL LIGHT APPROIRATELY. PATIENT IS ON TELE SHOWING SINUS RHYTHM TO SINUS TACH WITH RATE BETWEEN 80-112. SATTING >88% ALTERNATING BETWEEN BIPAP & AIRVO. PATIENT THROUGHOUT THE NIGHT TOLERATED THE BIPAP WITH NEEDING BREAKS & SOME ANXIETY MEDICATIONS. PATIENT SWITCHED TO AIRVO THROUGHOUT THE SHIFT SHE WAS AT 15 LITERS ON THE HEATED HIGH FLOW AND CONTINUED TO DESAT. PATIENT IS VERY ANXIOUS AT TIMES WHEN WEARING THE BIPAP AND OFTEN STATES SHE FEELS LIKE SHE IS DROWNING . PATIENT WAS EDUCATED ON THE BENEFIT OF WEARING THE BIPAP THROUGHOUT THE SHIFT AND RECEPTIVE TO KNOWING AND WAS COOPERATIVE WITH TRYING TO WEAR THE MASK. PATIENT WAS ABLE TO GET SOME REST THROUGHOUT THE SHIFT. NO REPORTING ANYTHING IS NEEDED AT THIS TIME. HAS THE BED IN LOWEST POSITION AND CALL LIGHT WITHIN REACH.
[2024-06-16 04:54] LABS: BASOPHILS ABSOLUTE AUTO 0.02 K/mm3 (0.00-0.23); BASOPHILS PERCENT AUTO 0 % (0-2); EOSINOPHILS ABSOLUTE AUTO 0.01 K/mm3 (0.00-0.68); EOSINOPHILS PERCENT AUTO 0 % (0-6); Hematocrit 34.9 % (33.0-51.0); Hemoglobin 11.1 g/dL (11.5-16.0); IMMATURE GRAN ABSOLUTE AUTO 0.07 K/mm3 (0.00-0.10); IMMATURE GRAN PERCENT AUTO 0 % (0-1); LYMPHOCYTES ABSOLUTE AUTO 1.28 K/mm3 (0.84-5.20); LYMPHOCYTES PERCENT AUTO 7 % (21-46); MONOCYTES ABSOLUTE AUTO 0.22 K/mm3 (0.16-1.47); MONOCYTES PERCENT AUTO 1 % (4-13); Mean Corpuscular HGB 26.6 pg (26.0-34.0); Mean Corpuscular HGB Conc 31.8 g/dL (31.5-36.5); Mean Corpuscular Volume 84 fL (80-100); Mean Platelet Volume 9.8 fL (9.1-12.4); NEUTROPHILS ABSOLUTE AUTO 17.16 K/mm3 (1.96-9.15); NEUTROPHILS PERCENT AUTO 91 % (41-73); Platelet Count 324 K/mm3 (150-400); RDW Coefficient Variation 16.2 % (11.7-14.2); RDW Standard Deviation 49.4 fL (35.1-46.3); Red Blood Cell Count 4.18 M/mm3 (3.80-5.20); White Blood Cell Count 18.76 K/mm3 (4.00-11.30)
[2024-06-16 05:17] LABS: Bun/Creatinine Ratio 30.5 (12.0-20.0); Calcium, Blood 9.3 mg/dL (8.5-10.1); Creatinine, Blood 0.82 mg/dL (0.40-1.00); Potassium, Blood 3.5 mmol/L (3.5-5.5)
[2024-06-16] MEDS ORDERED: Omeprazole 20 MG CapCR PO SCH (06:00)
[2024-06-16] MEDS ORDERED: CefTRIAXone Sodium 1,000 MG in NS 100 ML IV SCH (08:00)
[2024-06-16] MEDS ORDERED: Atorvastatin 40 MG Tab PO SCH (09:00)
[2024-06-16] MEDS ORDERED: Torsemide 20 MG TAB PO SCH (09:00)
[2024-06-16] MEDS ORDERED: FLUoxetine HCL 20 MG CAP PO SCH (09:00)
[2024-06-16] MEDS ORDERED: Enoxaparin 40 MG/0.4 ML SYR SC SCH (09:00)
--- NOTE | 2024-06-16 17:44 | NUR ---
PT SUMMARY; PT HAS BEEN ON AIRVO SETTINGS AT 50L 70% FIO2, SATS KEPT ABOVE 90% PT DESATS TO LOW 80S RECOVERS VIA PURSED LIP BREATHING PT ALSO GETS VERY ANXIOUS HYDROXYZINE WAS GIVEN X1 FOR THE SHIFT, BIPAP 16/18 75% FIO2 AT THE BEDSIDE PT ABLE TO USE THIS AFTERNOON TOLERATED FOR A COUPLE OF HRS. HRR ST 90'S, SBP 110-130'S, AFEBRILE. PT DENIES ANY CHEST PAIN/PRESSURE. PT HAS BEEN IN BED T/O SHIFT DUE TO RESPIRATORY DEMANDS PT ABLE TO REPOSITION SELF IN BED. TOELRATING PO INTAKE AT THIS TIME. BRETHING TX PER RT, IV ABX AND STEROIDS GIVEN. PT HAS BEEN CALLING APPROPRIATELY WILL REPORT TO ONCOMING SHIFT
[2024-06-16] MEDS ORDERED: Melatonin 3 MG Tab PO ONE (21:05)
[2024-06-17 04:12] VITALS: BP 99/60
--- NOTE | 2024-06-17 04:50 | NUR ---
SHIFT SUMMARY NO ACUTE CHANGES OVERNIGHT. PT REMAINS A&OX4. VSS ON BIPAP AND AIRVO INTERCHANGED SATS >90% HOWEVER WITH ACTIVITY PT DESATS QUICKLY BUT WITH QUICK RECOVERY. REMAINS ON TELE NSR/ST 90s-100s. PT SBA TO BSC THROUGHOUT NIGHT. NO FURTHER QUESTIONS OR CONCERNS AT THIS TIME. WILL CONTINUE WITH PLAN OF CARE AND REPORT TO ONCOMING NURSE.
[2024-06-17 05:04] LABS: BASOPHILS ABSOLUTE AUTO 0.02 K/mm3 (0.00-0.23); BASOPHILS PERCENT AUTO 0 % (0-2); EOSINOPHILS PERCENT AUTO 0 % (0-6); Hematocrit 32.7 % (33.0-51.0); Hemoglobin 10.4 g/dL (11.5-16.0); IMMATURE GRAN ABSOLUTE AUTO 0.14 K/mm3 (0.00-0.10); IMMATURE GRAN PERCENT AUTO 1 % (0-1); LYMPHOCYTES ABSOLUTE AUTO 1.07 K/mm3 (0.84-5.20); LYMPHOCYTES PERCENT AUTO 6 % (21-46); MONOCYTES ABSOLUTE AUTO 0.24 K/mm3 (0.16-1.47); MONOCYTES PERCENT AUTO 1 % (4-13); Mean Corpuscular HGB 26.6 pg (26.0-34.0); Mean Corpuscular HGB Conc 31.8 g/dL (31.5-36.5); Mean Corpuscular Volume 84 fL (80-100); Mean Platelet Volume 9.9 fL (9.1-12.4); NEUTROPHILS ABSOLUTE AUTO 16.21 K/mm3 (1.96-9.15); NEUTROPHILS PERCENT AUTO 92 % (41-73); Platelet Count 330 K/mm3 (150-400); RDW Coefficient Variation 16.8 % (11.7-14.2); RDW Standard Deviation 49.7 fL (35.1-46.3); Red Blood Cell Count 3.91 M/mm3 (3.80-5.20); White Blood Cell Count 17.68 K/mm3 (4.00-11.30)
[2024-06-17 05:19] LABS: Bun/Creatinine Ratio 33.3 (12.0-20.0); Calcium, Blood 8.9 mg/dL (8.5-10.1); Creatinine, Blood 1.02 mg/dL (0.40-1.00); Potassium, Blood 3.6 mmol/L (3.5-5.5)
[2024-06-17 07:15] VITALS: BP 118/51
[2024-06-17 11:45] VITALS: BP 105/64
[2024-06-17 15:46] VITALS: BP 119/61
--- NOTE | 2024-06-17 17:51 | NUR ---
PT SUMMARY; PT REMAINS ON AIRVO SETTINGS DECREASED TO 40L 60% FIO2, SATS KEPT ABOVE 90% FOR THE SHIFT. PT ALSO TOLERATED BEING UP IN THE CHAIR FOR MEALS. PT USING BIPAP NEEDED OR WHEN SLEEPING CURRENT SETTINGS 12/7 55% FIO2, SOB WITH EXERTION BUT ABLE TO RECOVER VIA DEEP BREATHING EXERCISES, OCCASIONAL COUGH PT HAS BEEN USING FLUTTER VALVE. USES BEDSIDE COMMODE FOR TOILETING. WAS GIVEN ANXIETY MEDS ONCE FOR THE SHIFT AND WAS EFFECRIVE. NO OTHER ISSUES ENCOUNTERED WILL REPORT TO ONCOMING SHIFT
--- NOTE | 2024-06-17 19:25 | NUR ---
ASSUMPTION OF CARE ASSEED PT'S CARE AT 1900,BEDSIDE REPORT COMLETED.PT AWAKE WATCHING TV,ON AIRVO AT 40L,66%.PLAN F CARE REVIEWED.PT DENIES PAIN,DENIES SOB AT REST,DENIES NEEDS.CALL LIGHT AND PT'S ITEMS WITHIN REACH.WILL CONTINUE TO MONITOR.
[2024-06-17 20:36] VITALS: BP 106/75
[2024-06-17] MEDS ORDERED: Melatonin 3 MG Tab PO PRN (23:10)
[2024-06-17 23:58] VITALS: BP 99/72
[2024-06-18] VITALS (12 sets, daily range): BP systolic 100–149; BP diastolic 56–116
[2024-06-18 04:04] LABS: BASOPHILS ABSOLUTE AUTO 0.01 K/mm3 (0.00-0.23); BASOPHILS PERCENT AUTO 0 % (0-2); EOSINOPHILS ABSOLUTE AUTO 0.05 K/mm3 (0.00-0.68); EOSINOPHILS PERCENT AUTO 0 % (0-6); Hematocrit 31.9 % (33.0-51.0); Hemoglobin 10.5 g/dL (11.5-16.0); IMMATURE GRAN PERCENT AUTO 1 % (0-1); LYMPHOCYTES ABSOLUTE AUTO 0.93 K/mm3 (0.84-5.20); LYMPHOCYTES PERCENT AUTO 7 % (21-46); MONOCYTES ABSOLUTE AUTO 0.25 K/mm3 (0.16-1.47); MONOCYTES PERCENT AUTO 2 % (4-13); Mean Corpuscular HGB 27.1 pg (26.0-34.0); Mean Corpuscular HGB Conc 32.9 g/dL (31.5-36.5); Mean Corpuscular Volume 82 fL (80-100); Mean Platelet Volume 9.7 fL (9.1-12.4); NEUTROPHILS ABSOLUTE AUTO 12.11 K/mm3 (1.96-9.15); NEUTROPHILS PERCENT AUTO 90 % (41-73); Platelet Count 320 K/mm3 (150-400); RDW Coefficient Variation 16.4 % (11.7-14.2); RDW Standard Deviation 49.2 fL (35.1-46.3); Red Blood Cell Count 3.87 M/mm3 (3.80-5.20); White Blood Cell Count 13.45 K/mm3 (4.00-11.30)
[2024-06-18 04:25] LABS: Bun/Creatinine Ratio 36.2 (12.0-20.0); Calcium, Blood 8.3 mg/dL (8.5-10.1); Creatinine, Blood 1.05 mg/dL (0.40-1.00); Potassium, Blood 3.5 mmol/L (3.5-5.5)
--- NOTE | 2024-06-18 06:00 | NUR ---
SHIFT SUMMARY PT SLEPT MOST OF THE NIGHT,RECEIVED PRN MELATONIN AND PRN HYDROXYZINE AT HS PER PT'S REQUEST.MAINTAINED OXYGEN SATURATION >93% USED THE BIPAP WHILE SLEEPING.PT DENIES PAIN,DENIES SOB,DENIES NEEDS AT THIS TIME.CALL LIGHT AND PT'S ITEMS WITHIN REACH.WILL GIVE REPORT TO DAYSHIFT NURSE FOR CONTINUITY OF CARE.
[2024-06-18] MEDS ORDERED: NS 250 ML IV PRN (09:00)
[2024-06-18 16:39] LABS: PCO2 Arterial 40.2 mmHg (35-45); PO2 Arterial 57.1 mmHg (80-100); pH Blood Arterial 7.51 (7.35-7.45)
--- NOTE | 2024-06-18 16:55 | NUR ---
SHIFT SUMMARY AND TRANSFER TO ICU PATIENT ALERT AND INTERACTIVE DURING BEDSIDE REPORT. PATIENT ON BIPAP AT 65%. BIOX RECONNECTED. PATIENT 82% RT AT BEDSIDE. INCREASED FIO2 AND GAVE BREATHING TX. PATIENT REMAINED ON BIPAP UNTIL BREAKFAST. PATIENT CHANGED TO AIRVO FOR BREAKFAST. PATIENT ABLE TO MAINTAIN BIOX AT 88-92%. PATIENT REQUESTING TO SHOWER. PATIENT ABLE TO WALK TO BR ON HIGH FLOW WITH NON REBREATHER IN PLACE. PATIENT TOLERATED SHOWER WELL AND ABLE TO WALK BACK TO BED. BIOX 85% AFTER SHOWER ON AIRVO. PATIENT PLACED BACK ON BIPAP AND INCREASED TO 75%, PATIENT CONTINUED TO HAVE TROUBLE KEEPING SATS ABOVE 88%. RT INCREASED FIO2 TO 100%. DR GASPAR NOTIFIED. ABG AND CHEST XRAY DONE. PATIENT CONTINUED TO BE ALERT AND INTERACTIVE. RESULTS REPORTED TO DR. GASPAR. PATIENT TRANSFERRED TO ICU WITH THE ASSISTANCE OF ICU CHARGE NURSE. REPORT GIVEN TO VIANEY Steve IN ICU AT BEDSIDE. PATIENT CONTINUED TO BE AWAKE AND INTERACTIVE IN ICU. DR. DE LA ROSA CALLED TO EVALUATE.
[2024-06-18] MEDS ORDERED: Vancomycin HCL 1,750 MG in NS 500 ML IV ONE (17:10)
[2024-06-18] MEDS ORDERED: Piperacillin/Tazobactam Sod 4.5 GM in NS 100 ML IV SCH (17:30)
[2024-06-18] MEDS ORDERED: Furosemide 10 MG/ML 4ML Vial IV SCH (18:00)
[2024-06-18] MEDS ORDERED: Potassium Chloride 20 MEQ TabCR PO ONE (18:00)
[2024-06-18] MEDS ORDERED: dexmedeTOMIDine 100 ML IV SCH (18:05)
--- NOTE | 2024-06-18 18:25 | NUR ---
TRANSFER PT ARRIVED FROM PCU 16 TO ICU 7 VIA BED. PT ALERT AND ORIENTED, WEARING THE BIPAP, FIO2 100%. PT IS TALKING IN FULL SENTENCES THROUGH THE BIPAP, MOVING AROUND. FIO2 WAS SLOWLY TITRATED DOWN TO 70% PT'S SPO2 WAS 99%. SPO2 REMAINED AT 92% UNTIL PT SIMPLY SAT UP IN BED AND SPO2 DROPPED TO THE LOW 80S AND FIO2 HAD TO BE TITRATED BACK UP TO 100%. DR. DE LA ROSA CAME TO BEDSIDE AND GAVE ORDERS FOR CPT. DIVISION ORDER TECHNICIAN RT INFORMED. PUREWICK PLACED AFTER LASIX GIVEN AND PT IS VOIDING CL YELLOW URINE. ANTIBIOTICS INFUSING. PT EXPRESSING SOME ANXIETY RELATED TO THE BIPAP MASK. DR. DE LA ROSA GAVE ORDER FOR PRECEDEX, WHICH IS INFUSING.
[2024-06-18] MEDS ORDERED: MethylPREDNISolone Sod Succ 125 MG Vial IV SCH (21:00)
[2024-06-19] VITALS (25 sets, daily range): BP systolic 104–137; BP diastolic 33–105
[2024-06-19 03:28] LABS: BASOPHILS ABSOLUTE AUTO 0.01 K/mm3 (0.00-0.23); BASOPHILS PERCENT AUTO 0 % (0-2); EOSINOPHILS PERCENT AUTO 0 % (0-6); Hematocrit 32.3 % (33.0-51.0); Hemoglobin 10.6 g/dL (11.5-16.0); IMMATURE GRAN ABSOLUTE AUTO 0.05 K/mm3 (0.00-0.10); IMMATURE GRAN PERCENT AUTO 1 % (0-1); LYMPHOCYTES ABSOLUTE AUTO 0.96 K/mm3 (0.84-5.20); LYMPHOCYTES PERCENT AUTO 10 % (21-46); MONOCYTES ABSOLUTE AUTO 0.27 K/mm3 (0.16-1.47); MONOCYTES PERCENT AUTO 3 % (4-13); Mean Corpuscular HGB 26.8 pg (26.0-34.0); Mean Corpuscular HGB Conc 32.8 g/dL (31.5-36.5); Mean Corpuscular Volume 82 fL (80-100); Mean Platelet Volume 9.8 fL (9.1-12.4); NEUTROPHILS ABSOLUTE AUTO 8.61 K/mm3 (1.96-9.15); NEUTROPHILS PERCENT AUTO 87 % (41-73); Platelet Count 313 K/mm3 (150-400); RDW Coefficient Variation 16.3 % (11.7-14.2); RDW Standard Deviation 48.1 fL (35.1-46.3); Red Blood Cell Count 3.96 M/mm3 (3.80-5.20)
[2024-06-19 03:48] LABS: Bun/Creatinine Ratio 36.6 (12.0-20.0); Calcium, Blood 8.1 mg/dL (8.5-10.1); Creatinine, Blood 1.01 mg/dL (0.40-1.00); Potassium, Blood 3.8 mmol/L (3.5-5.5)
--- NOTE | 2024-06-19 06:06 | NUR ---
SHIFT SUMMARY: NO SIGNIFICANT EVENTS OR CHANGES OVERNIGHT. PT HAS BEEN PLEASANT AND COOPERATIVE AND HAS WORN THE BIPAP CONSISTENTLY ALL NIGHT AND BEEN COMPLIANT WITH CPT. SHE'S A&OX4, BP STABLE, SINUS ARRHYTHMIA 70S-90S WITH OCCASIONAL PVCS. PT DENIES PAIN OR NAUSEA. HAS PRODUCTIVE COUGH. STILL TACHYPNEIC WITH DECLINE IN SPO2 WITH MOVEMENT OR EXERTION THOUGH PT DENIES FEELING SOB.
[2024-06-19] MEDS ORDERED: Potassium Chloride 20 MEQ/15 ML UDC PO SCH (11:00)
--- NOTE | 2024-06-19 13:02 | NUR ---
REASSESSMENT PT HAS BEEN RESTING IN BED THROUGHOUT THE MORNING. SHE REMAINS ALERT AND ORIENTED. SHE SWITCHED FROMT HE BIPAP TO HFNC WHEN SHE GOT HER CPT THIS MORNING AND HAS REMAINED ON THAT. HER FIO2 WAS NIA TO 75%, BUT SHE HAD TO BE TURNED BACK UP TO 90% WHILE HER SISTER WAS VISITING AND PT WAS TALKING. LUGNS CONTINUE TO BE COARSE, DIMMER ON THE L SIDE. COUGHED UP SOME YELLOW SPUTUM WITH CPT. SR IN THE 90S, MAP 85 CURRENTLY. VOIDING USING PUREWICK. EATING WITHOUT DIFFICULTY.
--- NOTE | 2024-06-19 16:51 | NUR ---
SHIFT SUMMARY PT HAS CONTINUED TO BE ALERT AND ORIENTED. SHE HAS REMAINED ON THE HFNC THROUGHOUT THE SHIFT. SHE IS TOLERATING CPT WELL AND USING HER FLUTTER VALVE WELL. LUNGS ARE STILL COARSE. REMAINS IN SR, VOIDING USING THE PURE WICK, EATING WELL.
[2024-06-19] MEDS ORDERED: Vancomycin HCL 1,250 MG in NS 250 ML IV SCH (18:00)
[2024-06-19] MEDS ORDERED: MethylPREDNISolone Sod Succ 125 MG Vial IV SCH (21:00)
[2024-06-20] VITALS (21 sets, daily range): BP systolic 107–144; BP diastolic 54–120
[2024-06-20 03:44] LABS: BASOPHILS PERCENT AUTO 0 % (0-2); EOSINOPHILS ABSOLUTE AUTO 0.01 K/mm3 (0.00-0.68); EOSINOPHILS PERCENT AUTO 0 % (0-6); Hematocrit 34.3 % (33.0-51.0); IMMATURE GRAN ABSOLUTE AUTO 0.07 K/mm3 (0.00-0.10); IMMATURE GRAN PERCENT AUTO 1 % (0-1); LYMPHOCYTES ABSOLUTE AUTO 0.97 K/mm3 (0.84-5.20); LYMPHOCYTES PERCENT AUTO 9 % (21-46); MONOCYTES ABSOLUTE AUTO 0.44 K/mm3 (0.16-1.47); MONOCYTES PERCENT AUTO 4 % (4-13); Mean Corpuscular HGB 26.2 pg (26.0-34.0); Mean Corpuscular HGB Conc 32.1 g/dL (31.5-36.5); Mean Corpuscular Volume 82 fL (80-100); Mean Platelet Volume 9.9 fL (9.1-12.4); NEUTROPHILS ABSOLUTE AUTO 9.05 K/mm3 (1.96-9.15); NEUTROPHILS PERCENT AUTO 86 % (41-73); Platelet Count 340 K/mm3 (150-400); RDW Coefficient Variation 16.1 % (11.7-14.2); White Blood Cell Count 10.54 K/mm3 (4.00-11.30)
[2024-06-20 04:00] LABS: Bun/Creatinine Ratio 37.3 (12.0-20.0); Calcium, Blood 8.3 mg/dL (8.5-10.1); Creatinine, Blood 1.02 mg/dL (0.40-1.00); Magnesium, Blood 2.3 mg/dL (1.6-2.4); Phosphorus, Blood 4.5 mg/dL (2.5-4.9); Potassium, Blood 4.1 mmol/L (3.5-5.5)
--- NOTE | 2024-06-20 05:46 | NUR ---
SHIFT SUMMARY: NO EVENTS OR CHANGES OVERNIGHT. PT APPEARS TO BE IMPROVING, LUNG SOUNDS HAVE IMPROVED. PT STATES SHE FEELS MUCH BETTER. SHE REMAINED ON AIRVO OVERNIGHT WITHOUT ISSUE. HAS MILDLY PRODUCTIVE COUGH. PT STRENGTH IMPROVING AND SHE WAS ABLE TO GET UP IN HER ROOM WITHOUT DYSPNEA.
--- NOTE | 2024-06-20 07:18 | NUR ---
ASSUMPTION OF CARE: ASSUMED CARE OF PATIENT. PATIENT SITTING UP IN BED. PATIENT DENIES PAIN OR DISCOMFORT. PATIENT CURRENTLY ON AIRVO 50L/56%. SPO2 >94%. RR IN THE 10S-LOW 20S. PATIENT DENIES DIFFICULTY BREATHING OR SHORTNESS OF BREATH AT THIS TIME. PER NIGHT RN, PRECEDEX STOPPED SHORTLY BEFORE CHANGE OF SHIFT. PATIENT DENIES ANXIETY AT THIS TIME. VITALS STABLE WITH MAPS >65 AND HR IN THE 60S-70S. PUREWICK IN PLACE AND WORKING CORRECTLY. PATIENT REPORTS SHE HAS BEEN TOLERATING THE CPT WELL.
[2024-06-20] MEDS ORDERED: Sodium Chloride 0.9% Inj 10 ML Vial INH ONE (09:20)
[2024-06-20] MEDS ORDERED: Acetylcysteine 200 MG/ML 4ML Vial INH SCH (13:25)
--- NOTE | 2024-06-20 13:38 | NUR ---
RESPIRATORY STATUS: AFTER UP TO THE TOILET AND RECLINER THIS MORNING, PATIENT HAS CONTINUED TO REQUIRE 80-85% FIO2 TO MAINTAIN SPO2 >90%. PATIENT REPORTS THAT HER BREATHING FEELS HEAVIER. DISCUSSED WITH DR. HIGH. DR. HIGH AT BEDSIDE. NEW ORDERS IN PLACE.
--- NOTE | 2024-06-20 17:59 | NUR ---
SHIFT SUMMARY: NEURO: PATIENT ALERT AND ORIENTED X4 THROUGHOUT THE SHIFT. PATIENT DENIED ANXIETY DURING THE DAY BUT REPORTED THAT SHE DOES HAVE ANXIETY AT NIGHT. PATIENT UP TO THE RECLINER AND BSC TODAY. PATIENT HAS BEEN ABLE TO MAINTAIN HER STRENGTH. RESPIRATORY: PATIENT'S O2 NEEDS REQUIRED STARTING ABOUT MID MORNING. AIRVO FIO2 INCREASED TO 86% TO MAINTAIN AN SPO2 >90%. AT THE TIME OF THIS NOTE, STARTING TO TITRATE DOWN THE FIO2. MARLEY AND LOLIS WANG AT BEDSIDE, FIO2 DECREASED TO 77%. SPO2 AT 94-95%. THROUGHOUT THE SHIFT, PATIENT HAS BEEN UTLIZING HER FLUTTER VALVE. MINIMAL THICK BENÍTEZ SECRETIONS. ONCE BACK IN BED, PATIENT ROTATED MODERATELY TO HER RIGHT SIDE. CARDIAC: PATIENT'S VITALS STABLE WITH MAPS >65. HR IN THE 80S-90S. MILDLY TACHY THIS AFTERNOON FOR ABOUT AN HOUR (HR IN THE LOW 100S). GI/: PATIENT HAS AN EXCELLENT APPETITE. PATIENT ABLE TO VOID WITHOUT DIFFICULTY. ATTENDS IN PLACE. PATIENT HAD FORMED, SOFT, BROWN BOWEL MOVEMENT TODAY. PSYCHSOCIAL: PATIENT CALM AND COOPERATIVE. PATIENT JOKES WITH STAFF. PATIENT RECEPTIVE TO INSTRUCTION. PATIENT REPORTS THAT SHE DOES NOT LIKE TO ASK HER FAMILY FOR RIDES TO APPOINTMENTS.
[2024-06-21] VITALS (12 sets, daily range): BP systolic 87–129; BP diastolic 17–82
[2024-06-21 03:38] LABS: BASOPHILS ABSOLUTE AUTO 0.01 K/mm3 (0.00-0.23); BASOPHILS PERCENT AUTO 0 % (0-2); EOSINOPHILS PERCENT AUTO 0 % (0-6); Hemoglobin 11.1 g/dL (11.5-16.0); IMMATURE GRAN ABSOLUTE AUTO 0.05 K/mm3 (0.00-0.10); IMMATURE GRAN PERCENT AUTO 1 % (0-1); LYMPHOCYTES ABSOLUTE AUTO 0.97 K/mm3 (0.84-5.20); LYMPHOCYTES PERCENT AUTO 10 % (21-46); MONOCYTES ABSOLUTE AUTO 0.36 K/mm3 (0.16-1.47); MONOCYTES PERCENT AUTO 4 % (4-13); Mean Corpuscular HGB 26.4 pg (26.0-34.0); Mean Corpuscular HGB Conc 31.7 g/dL (31.5-36.5); Mean Corpuscular Volume 83 fL (80-100); Mean Platelet Volume 9.9 fL (9.1-12.4); NEUTROPHILS ABSOLUTE AUTO 8.07 K/mm3 (1.96-9.15); NEUTROPHILS PERCENT AUTO 85 % (41-73); Platelet Count 308 K/mm3 (150-400); RDW Coefficient Variation 15.9 % (11.7-14.2); RDW Standard Deviation 47.8 fL (35.1-46.3); Red Blood Cell Count 4.21 M/mm3 (3.80-5.20); White Blood Cell Count 9.46 K/mm3 (4.00-11.30)
[2024-06-21 03:58] LABS: Bun/Creatinine Ratio 31.8 (12.0-20.0); Calcium, Blood 8.1 mg/dL (8.5-10.1); Creatinine, Blood 0.98 mg/dL (0.40-1.00); Potassium, Blood 4.8 mmol/L (3.5-5.5)
--- NOTE | 2024-06-21 06:36 | NUR ---
SHIFT SUMMARY PATIENT SLEPT OFF AND ON THROUGH OUT SHIFT. A&O X4. HR IN THE 70-80'S AND SBP 110-120'S. ON AIRVO 50L/60%. PATIENT USES BEDSIDE COMMODE AND HAS PUREWICK INPLACE OVER NIGHT WITH ATTENDS. HAS POWERGLIDE IN UMM AND PERIPHERAL IN RIGHT AC. PATIENT USES CALL LIGHT WHEN NEEDS NURSE. CAN REPOSITION HERSELF NEEDED FOR COMFORT. CALL LIGHT WITHIN REACH.
--- NOTE | 2024-06-21 18:35 | NUR ---
Summary. Pt doing well this shift. Ambulates with minimal assistance to commode, up in chair most of shift. No acute events this shift. See chart for details
[2024-06-21] MEDS ORDERED: Insulin Regular 100 UNIT/ML 10ML Vial SC SCH (21:00)
[2024-06-21] MEDS ORDERED: TraZODone HCl 50 MG Tab PO SCH (21:00)
[2024-06-22] VITALS (35 sets, daily range): BP systolic 90–163; BP diastolic 47–133
[2024-06-22 03:44] LABS: BASOPHILS ABSOLUTE AUTO 0.01 K/mm3 (0.00-0.23); BASOPHILS PERCENT AUTO 0 % (0-2); EOSINOPHILS PERCENT AUTO 0 % (0-6); Hematocrit 35.3 % (33.0-51.0); Hemoglobin 11.3 g/dL (11.5-16.0); IMMATURE GRAN ABSOLUTE AUTO 0.06 K/mm3 (0.00-0.10); IMMATURE GRAN PERCENT AUTO 1 % (0-1); LYMPHOCYTES ABSOLUTE AUTO 1.08 K/mm3 (0.84-5.20); LYMPHOCYTES PERCENT AUTO 10 % (21-46); MONOCYTES ABSOLUTE AUTO 0.31 K/mm3 (0.16-1.47); MONOCYTES PERCENT AUTO 3 % (4-13); Mean Corpuscular HGB 26.4 pg (26.0-34.0); Mean Corpuscular Volume 83 fL (80-100); Mean Platelet Volume 9.7 fL (9.1-12.4); NEUTROPHILS ABSOLUTE AUTO 9.22 K/mm3 (1.96-9.15); NEUTROPHILS PERCENT AUTO 86 % (41-73); Platelet Count 330 K/mm3 (150-400); RDW Coefficient Variation 15.9 % (11.7-14.2); RDW Standard Deviation 47.6 fL (35.1-46.3); Red Blood Cell Count 4.28 M/mm3 (3.80-5.20); White Blood Cell Count 10.68 K/mm3 (4.00-11.30)
[2024-06-22 04:00] LABS: Calcium, Blood 8.2 mg/dL (8.5-10.1); Creatinine, Blood 0.89 mg/dL (0.40-1.00); Magnesium, Blood 2.1 mg/dL (1.6-2.4); Phosphorus, Blood 3.8 mg/dL (2.5-4.9); Potassium, Blood 4.4 mmol/L (3.5-5.5)
--- NOTE | 2024-06-22 06:13 | NUR ---
SHIFT SUMMARY PATIENT IS A&O X4 AND VERY ANXIOUS ESPECIALLY WHEN SOB. PATIENT TRIED 25MG OF TRAZADONE FOR ANXIETY AND HELP WITH SLEEP LASTED ABOUT 3 HOURS. PATIENT BECOME SOB AND DESATTING INTO THE 80'S, RT WAS CALLED AND AIRVO WAS INCREASED FROM 50L/50% TO 70L/55%. PRECEDEX WAS STARTED @ 0.2MCG/HR. PATIENT O2 CAME BACK UP INTO THE 90'S. PATEINT WAS ABLE TO RELAX AND SLEEP THROUGH THE REST OF SHIFT. SBP IN THE 110-120'S AND HR IN THE 70-80'S. PATIENT HAS A PUREWICK FOR NIGHT TIME WITH ATTENDS. PATIENT WAS NPO AFTER MIDNIGHT DUE TO PROCEDURE IN AM. PATIENT ABLE TO USES CALL LIGHT FOR NEEDS. HAS POWERGLIDE IN UMM AND PERIPHERAL IN RIGHT AC. CALL LIGHT WITHIN REACH.
[2024-06-22] MEDS ORDERED: Acetylcysteine 200 MG/ML 4ML Vial INH SCH (12:00)
[2024-06-22] MEDS ORDERED: FentaNYL Citrate 50 MCG/ML 2 ML Injection IV ONE ×2 (12:15→14:00)
[2024-06-22] MEDS ORDERED: Midazolam HCL 1 MG/ML 5MLVIAL IV ONE ×2 (12:15→14:00)
[2024-06-22] MEDS ORDERED: Lidocaine 2% Jelly Uro-Jet ONE (12:19)
[2024-06-22] MEDS ORDERED: Lidocaine HCl 4% 5 ML SDA INH ONE (12:30)
--- NOTE | 2024-06-22 12:30 | NUR ---
BRONCH: 1244: ORAL ANESTHETIC ADMINISTERED BY DR. HIGH. 1247: BITE BLOCK AND O2 MASK IN PLACE. RT X2 AT BEDSIDE. PRIMARY RN AT BEDSIDE. 1249: 50 MCG FENTANYL ADMINISTERED 1250: 2 MG VERSED ADMINISTERED 1251: INTRODUCTION OF SCOPE. 1251: LIDOCAINE ADMINISTERED X 2 VIA SCOPE BY RT 1252: 2 MG VERSED ADMINISTERED 1253: LIDOCAINE ADMINISTERED VIA SCOPE BY RT 1254: SUSPECTED FOREIGN OBJECT IDENTIFIED 1306: 25 MCG OF FENTANYL ADMINISTERED; 1 MG VERSED ADMINISTERED 1308: LIDOCAINE ADMINISTERED VIA SCOPE BY RT. 1308: FORCEPS INTRODUCED 1311: REMOVAL OF FORCEPS 1313: LIDOCAINE ADMINISTERED VIA SCOPE BY RT 1315: 25 MCG FENTANYL ADMINISTERED 1316: 2 MG VERSED ADMINISTERED 1319: FORCEPS INTRODUCED 1323: FORCEPS REMOVED 1327: 25 MCG FENTANYL ADMINISTERED 1328: BASKET INTRODUCED 1330: BASKET REMOVED 1331: FORCEPS INTRODUCED 1333: FORCEPS REMOVED 1338: RESCUE BASKET INTRODUCED 1342: RESCURE BASKET REMOVED 1344: 2MG VERSED ADMINISTERED 1347: RESCUE BASKET INTRODUCED 1348: LIODCAINE ADMINISTERED VIA SCOPE BY RT 1355: FOREIGN OBJECT REMOVED. BASKET REMOVED. 1356: MUCOMYST 2 ML ADMINISTERED VIA SCOPE BY RT. 1358: END OF BRONCHOSCOPE. VITALS STABLE WITH MAPS >65. BP 124/76. HR 95. SPO2 98%. AIRVO 55L/89%. PT AROUSABLE AND FOLLOWING COMMANDS
[2024-06-22] MEDS ORDERED: FentaNYL Citrate 50 MCG/ML 2 ML Injection ONE (13:24)
[2024-06-22] MEDS ORDERED: Lidocaine HCl 2% 10 ML SDA INH ONE (13:50)
[2024-06-22] MEDS ORDERED: ALPRAZolam 0.25 MG Tab PO PRN (16:30)
--- NOTE | 2024-06-22 18:18 | NUR ---
Summary. Pt continues on Airvo, improvements seen on chest xray after bronch today. Foreign object removed from left lung. Pt tolerated procedure well. No other acute events, see chart for details.
[2024-06-23] VITALS (16 sets, daily range): BP systolic 103–168; BP diastolic 55–108
[2024-06-23 03:48] LABS: BASOPHILS PERCENT AUTO 0 % (0-2); EOSINOPHILS PERCENT AUTO 0 % (0-6); Hematocrit 34.2 % (33.0-51.0); IMMATURE GRAN ABSOLUTE AUTO 0.05 K/mm3 (0.00-0.10); IMMATURE GRAN PERCENT AUTO 1 % (0-1); LYMPHOCYTES ABSOLUTE AUTO 0.84 K/mm3 (0.84-5.20); LYMPHOCYTES PERCENT AUTO 9 % (21-46); MONOCYTES ABSOLUTE AUTO 0.22 K/mm3 (0.16-1.47); MONOCYTES PERCENT AUTO 2 % (4-13); Mean Corpuscular HGB 26.7 pg (26.0-34.0); Mean Corpuscular HGB Conc 32.2 g/dL (31.5-36.5); Mean Corpuscular Volume 83 fL (80-100); Mean Platelet Volume 10.2 fL (9.1-12.4); NEUTROPHILS ABSOLUTE AUTO 8.72 K/mm3 (1.96-9.15); NEUTROPHILS PERCENT AUTO 89 % (41-73); Platelet Count 333 K/mm3 (150-400); Red Blood Cell Count 4.12 M/mm3 (3.80-5.20); White Blood Cell Count 9.83 K/mm3 (4.00-11.30)
[2024-06-23 04:22] LABS: Bun/Creatinine Ratio 34.4 (12.0-20.0); Creatinine, Blood 0.79 mg/dL (0.40-1.00); Potassium, Blood 4.3 mmol/L (3.5-5.5)
--- NOTE | 2024-06-23 05:39 | NUR ---
SHIFT SUMMARY PATIENT HAS SLEPT OFF AND ON THROUGH SHIFT. PATIENT IS A&OX4. PATIENT IS ON AIRVO SETTINGS 40L/50% AND SATTING @ 95%. SBP 110-120'S AND HR 70-80'S. PATIENT GET SUP TO USE BATHROOM IN ROOM AND HAS ATTENDS ON FOR LEAKING BLADDER FROM COUGHING. PATIENT MOVED SELF IN BED FOR REPOSITIONING BUT NEEDS STAND BY ASSIST FOR BATHROOM USE. PATIENT USES CALL LIGHT WHEN NEEDED. PATIENT HAS POWERGLIDE IN UMM AND 20G AC IN RIGHT. CALL LIGHT WITHIN REACH.
--- NOTE | 2024-06-23 07:30 | NUR ---
CARE ASSUMPTION DURING BEDSIDE SHIFT REPORT W STEVE RN THE PT IS SITTING UPRIGHT IN BED RECIEVING BREATHING TX PER RT. PT IS ALERT AND COMMUNICATING APPROPRIATELY W STAFF. PT APPEARS STRONG AND HAS PRODUCTIVE COUGH AT TIME OF INTERACTION. MONITOR SHOWING SR 80'S AND SPO2 >92% W AIRVO SETTINGS 3OL AND 35% FIO2. PT'S THIS RN INTRDUCING SELF TO PT AND EXPRESSING INTENT TO RETURN TO ASSIST THE PT TO THE CHAIR BEFORE BREAKFAST. PT AGREEING TO PLAN AND RESUMES BREATHING TX.
--- NOTE | 2024-06-23 16:34 | NUR ---
THIS RN ASSUMED CARE OF PT AT 1630. PT IS ALERT AND ORIENTED X4, CALLS APPROPRIATELY. PT HEART RATE IN THE 90s, BLOOD PRESSURE STABLE AT 124/98, PT DENIES CHEST PAIN. PT IS ON ROOM AIR SOUNDS WHEEZY/DIMINISHED, SATTING >92%, PT DENIES SHORTNESS OF BREATH. PT IS ABLE TO GET UP INDEPENDENTLY AND USES BATHROOM INDEPENDENTLY. NO OTHER INTERVENTIONS AT THIS TIME. PLAN OF CARE CONTINUED.
--- NOTE | 2024-06-23 17:50 | NUR ---
PT SUMMARY PT IS SITTING COMFORTABLLY IN BED, NO ACUTE EVENTS TO REPORT THROUGHOUT THE DAY, NO OTHER INTERVENTIONS AT THIS TIME. POSSIBLE DISCHARGE IN THE AM. PLAN OF CARE CONTINUED.
[2024-06-23] MEDS ORDERED: Amoxicillin/Clavulanate K 875 MG Tab PO SCH (21:00)
[2024-06-23] MEDS ORDERED: Acetylcysteine 200 MG/ML 4ML Vial INH SCH (23:30)
[2024-06-24] VITALS (7 sets, daily range): BP systolic 102–139; BP diastolic 63–75
[2024-06-24 04:00] LABS: BASOPHILS ABSOLUTE AUTO 0.01 K/mm3 (0.00-0.23); BASOPHILS PERCENT AUTO 0 % (0-2); EOSINOPHILS ABSOLUTE AUTO 0.07 K/mm3 (0.00-0.68); EOSINOPHILS PERCENT AUTO 1 % (0-6); Hematocrit 33.5 % (33.0-51.0); Hemoglobin 10.8 g/dL (11.5-16.0); IMMATURE GRAN PERCENT AUTO 1 % (0-1); LYMPHOCYTES ABSOLUTE AUTO 3.79 K/mm3 (0.84-5.20); LYMPHOCYTES PERCENT AUTO 26 % (21-46); MONOCYTES ABSOLUTE AUTO 1.44 K/mm3 (0.16-1.47); MONOCYTES PERCENT AUTO 10 % (4-13); Mean Corpuscular HGB 26.6 pg (26.0-34.0); Mean Corpuscular HGB Conc 32.2 g/dL (31.5-36.5); Mean Corpuscular Volume 83 fL (80-100); Mean Platelet Volume 9.9 fL (9.1-12.4); NEUTROPHILS ABSOLUTE AUTO 9.31 K/mm3 (1.96-9.15); NEUTROPHILS PERCENT AUTO 63 % (41-73); Platelet Count 335 K/mm3 (150-400); RDW Standard Deviation 48.1 fL (35.1-46.3); Red Blood Cell Count 4.06 M/mm3 (3.80-5.20); White Blood Cell Count 14.72 K/mm3 (4.00-11.30)
[2024-06-24 04:19] LABS: Bun/Creatinine Ratio 37.1 (12.0-20.0); Calcium, Blood 8.3 mg/dL (8.5-10.1); Creatinine, Blood 0.84 mg/dL (0.40-1.00); Potassium, Blood 4.2 mmol/L (3.5-5.5)
--- NOTE | 2024-06-24 05:31 | NUR ---
SHIFT SUMMARY PATIENT SLEPT THROUGH SHIFT. A&O X4 USES CALL LIGHT NEEDED. WALKS TO TOILET IN ROOM. WEARS ATTENDS FOR COMFORT FOR LEAKING OF BLADDER FROM COUGHING. SBP 115-130'S AND HR IN THE 70'S. HAS POWERGLIDE IN UMM SALINE LOCKED. CALL LIGHT WITHIN REACH.
[2024-06-24] MEDS ORDERED: TORSE20 PO (10:53)
[2024-06-24] MEDS ORDERED: AMOCLA875 PO (10:55)
[2024-06-24] MEDS ORDERED: GUAI600T33 PO (10:56)
[2024-06-24] MEDS ORDERED: VISBIOME 112.51 EACH PO (10:57)
[2024-06-24] MEDS ORDERED: Prednisone20 MG PO (10:59)
[2024-06-24] MEDS ORDERED: Acetylcysteine 200 MG/ML 4ML Vial INH SCH ×2 (12:00→13:05)
--- NOTE | 2024-06-24 13:13 | NUR ---
PT DISCHARGED TO HOME WITH DISCHARGED ORDERS. PT TO CONTINUE ANTIBIOTICS AND STEROIDS PO, AND TO FF-UP APPOINTMENT WITH PCP. HOME O2 EVAL DONE PRIOR TO DC, PT DOESNT REQUIRE ANY O2 AT THIS TIME. PT HAS BEEN AMBUALTING INDEPENDENTLY IN THE ROOM, DENIES ANY PAIN OR DISCOMFORT. VITALS HAS BEEN STABLE. NO OTHER ISSUES ENCOUNTERED FOR THE SHIFT. ALL NEW MEDICATIONS AND DISCHARGE INSTRUCTIONS DISCLOSED WITH THE PT, ALL BENLONGINGS SENT WITH THE PT, PRESCRIPTIONS SENT TO [facility]. ACCOMPANIED VIA WHEELCHAIR FOR TRANSPORT
== END 2024-06-24 12:35 | disposition home or self-care (01) | DRG 871 ==
LOC: ER 05:37 → ICUE 07:55 → ERHOLD 07:55 → PCU 12:30 → ICUE 06-18 17:03
PROVIDERS: Internal Medicine; Internal Medicine Critical Care Medicine; Student in an Organized Health Care Education/Training Program; ADMIT Family Medicine
PROC: 5A09557 Assistance with Respiratory Ventilation, Greater than 96 Consecutive Hours, Continuous Positive Airway Pressure (ICD-10-PCS; 2024-06-15)
PROC: 5A0935A Assistance with Respiratory Ventilation, Less than 24 Consecutive Hours, High Flow/Velocity Cannula (ICD-10-PCS; 2024-06-16)
PROC: 0BCB8ZZ Extirpation of Matter from Left Lower Lobe Bronchus, Via Natural or Artificial Opening Endoscopic (ICD-10-PCS; principal; 2024-06-22)
PROC: 0B9J8ZX Drainage of Left Lower Lung Lobe, Via Natural or Artificial Opening Endoscopic, Diagnostic (ICD-10-PCS; 2024-06-22)
DX: A41.9 Sepsis, unspecified organism (principal); J18.9 Pneumonia, unspecified organism; J96.01 Acute respiratory failure with hypoxia; J96.02 Acute respiratory failure with hypercapnia; J44.0 Chronic obstructive pulmonary disease with (acute) lower respiratory infection; J44.1 Chronic obstructive pulmonary disease with (acute) exacerbation; J98.11 Atelectasis; R65.20 Severe sepsis without septic shock; E11.22 Type 2 diabetes mellitus with diabetic chronic kidney disease; I48.0 Paroxysmal atrial fibrillation; F32.A Depression, unspecified; E11.40 Type 2 diabetes mellitus with diabetic neuropathy, unspecified; N18.30 Chronic kidney disease, stage 3 unspecified; I12.9 Hypertensive chronic kidney disease with stage 1 through stage 4 chronic kidney disease, or unspecified chronic kidney disease; K21.9 Gastro-esophageal reflux disease without esophagitis; I25.10 Atherosclerotic heart disease of native coronary artery without angina pectoris; E78.5 Hyperlipidemia, unspecified; Z79.01 Long term (current) use of anticoagulants; Z79.899 Other long term (current) drug therapy
CPT/HCPCS: 0241U; 36415; 36600; 71045; 80048; 80053; 82803; 82947; 83605; 83735; 83880; 84100; 84484; 85025; 87040; 87070; 87205; 93005; 93010; 94640; 94644; 94660; 94664; 94667; 94668; 94760; 94761; 94762; 96365; 96367; 99285-25; A9270; C1751; J0696; J1815; J1940; J2003; J2060; J2250; J2543; J2919; J3010; J3370; J7030; J7040; J7050; J7060

== ENCOUNTER 2024-07-05 02:31 | Inpatient (IN) | payer OTHER ==
[~2024-07-05] VITALS: Ht 152.4 cm; Wt 71.8 kg
[~2024-07-05 02:31] MED LIST changes: +AMOCLA875 PO; +GUAI600T33 PO; +Prednisone20 MG PO; +TORSE20 PO
[2024-07-05 02:53] LABS: BASOPHILS ABSOLUTE AUTO 0.02 K/mm3 (0.00-0.23); BASOPHILS PERCENT AUTO 0 % (0-2); EOSINOPHILS ABSOLUTE AUTO 0.14 K/mm3 (0.00-0.68); EOSINOPHILS PERCENT AUTO 2 % (0-6); Hematocrit 36.9 % (33.0-51.0); Hemoglobin 11.7 g/dL (11.5-16.0); IMMATURE GRAN ABSOLUTE AUTO 0.03 K/mm3 (0.00-0.10); IMMATURE GRAN PERCENT AUTO 0 % (0-1); LYMPHOCYTES PERCENT AUTO 24 % (21-46); MONOCYTES ABSOLUTE AUTO 0.72 K/mm3 (0.16-1.47); MONOCYTES PERCENT AUTO 8 % (4-13); Mean Corpuscular HGB 26.7 pg (26.0-34.0); Mean Corpuscular HGB Conc 31.7 g/dL (31.5-36.5); Mean Corpuscular Volume 84 fL (80-100); NEUTROPHILS ABSOLUTE AUTO 5.92 K/mm3 (1.96-9.15); NEUTROPHILS PERCENT AUTO 66 % (41-73); Platelet Count 187 K/mm3 (150-400); RDW Coefficient Variation 17.1 % (11.7-14.2); RDW Standard Deviation 51.8 fL (35.1-46.3); Red Blood Cell Count 4.39 M/mm3 (3.80-5.20); White Blood Cell Count 9.03 K/mm3 (4.00-11.30)
[2024-07-05 03:15] LABS: Albumin/Globulin Ratio 0.9 (0.8-1.8); Bilirubin, Total 0.6 mg/dL (0.1-1.0); Bun/Creatinine Ratio 14.5 (12.0-20.0); Calcium, Blood 8.7 mg/dL (8.5-10.1); Creatinine, Blood 0.83 mg/dL (0.40-1.00); Globulin, Blood 3.2 g/dL (2.2-4.0); Potassium, Blood 3.6 mmol/L (3.5-5.5); Total Protein, Blood 6.2 g/dL (6.4-8.2)
[2024-07-05 03:30] LABS: Influenza A, PCR NEGATIVE (NEGATIVE); Influenza B, PCR NEGATIVE (NEGATIVE); Resp Syncytial Virus, PCR NEGATIVE (NEGATIVE); SARS-Cov-2 (COVID-19) PCR, MMC NEGATIVE (NEGATIVE)
[2024-07-05] MEDS ORDERED: LevoFLOXacin 750 MG/D5W 150ML 150 ML IV ONE (05:30)
[2024-07-05] MEDS ORDERED: NS 1,000 ML IV SCH (05:30)
[2024-07-05 06:39] LABS: Phosphorus, Blood 3.2 mg/dL (2.5-4.9)
[2024-07-05] MEDS ORDERED: Ipratropium/Albuterol SulF 2.5-0.5MG/3 ML Amp INH ONE (06:45)
[2024-07-05] MEDS ORDERED: FLU VACC TS2024-25(6MOS UP)/PF 45 MCG/0.5 ML SYRINGE IM SCH (08:35)
[2024-07-05 10:41] VITALS: BP 106/95
[2024-07-05] MEDS ORDERED: CEFD300 PO (11:22)
[2024-07-05] MEDS ORDERED: Ipratropium/Albuterol SulF 2.5-0.5MG/3 ML Amp INH PRN (13:00)
[2024-07-05] MEDS ORDERED: Gabapentin 100 MG Cap PO PRN (13:00)
[2024-07-05] MEDS ORDERED: Albuterol HFA200 ACT/6.7 GM INH INH PRN (13:10)
[2024-07-05 15:44] VITALS: BP 114/54
[2024-07-05] MEDS ORDERED: Carvedilol 6.25 MG Tab PO SCH (17:00)
[2024-07-05 17:04] VITALS: BP 108/56
--- NOTE | 2024-07-05 17:04 | NUR ---
SHIFT SUMMARY PT AOX4, COOPERATIVE, ABLE TO MAKE NEEDS KNOWN. PT IS ON 3L O2 VIA NC FOR COMFORT AT HOME BUT CONSTANTLY DURING ADMISSION. PT IS 1 PERSON ASSIST TO BATHROOM FOR VOIDING. PT HAS NO COMPLAINTS OF PAIN, DID REQUEST ONE BREATHING TREATMENT FROM RT. PT IS NOW ACHS. BED IN LOWEST POSITION, CALL LIGHT WITHIN REACH.
[2024-07-05 19:15] VITALS: BP 101/56
[2024-07-05] MEDS ORDERED: Insulin Human Lispro 100 Units/ML 3ML Syringe SC SCH (21:00)
[2024-07-05] MEDS ORDERED: GuaiFENesin 600 MG TabCR PO SCH (21:00)
[2024-07-05] MEDS ORDERED: Apixaban 5 MG Tab PO SCH (21:00)
[2024-07-06 00:55] VITALS: BP 110/57
[2024-07-06 05:35] VITALS: BP 125/46
--- NOTE | 2024-07-06 05:36 | NUR ---
SHIFT SUMMARY NOC PT A/O X 4. PLEASANT AND COOPERATIVE WITH CARE. VSS. NO ACUTE CHANGES TO REPORT. PT ON 3L/NC SPO2 >92%, PT HAS HARSH HACKING COUGH AND IS ABLE TO COUGH UP SPUTUM THAT IS THICK AND YELLOW. PT ON TELE SINUS RHYTHM IN 70'S. PT USING CALL LIGHT FOR SBA WHEN AMBULATING TO BATHROOM DUE TO DYSPNEA WITH EXERTION. PT HS CBG 155 CNI. PT CURRENTLY RESTING WITH BED IN LOWEST POSITION, AND CALL LIGHT WITHIN REACH.
[2024-07-06 05:41] LABS: BASOPHILS ABSOLUTE AUTO 0.01 K/mm3 (0.00-0.23); BASOPHILS PERCENT AUTO 0 % (0-2); EOSINOPHILS ABSOLUTE AUTO 0.16 K/mm3 (0.00-0.68); EOSINOPHILS PERCENT AUTO 3 % (0-6); Hemoglobin 9.7 g/dL (11.5-16.0); Mean Corpuscular HGB 26.9 pg (26.0-34.0); Mean Corpuscular HGB Conc 31.3 g/dL (31.5-36.5); Mean Corpuscular Volume 86 fL (80-100); Mean Platelet Volume 9.9 fL (9.1-12.4); Platelet Count 159 K/mm3 (150-400); RDW Standard Deviation 52.3 fL (35.1-46.3); Red Blood Cell Count 3.61 M/mm3 (3.80-5.20); White Blood Cell Count 5.84 K/mm3 (4.00-11.30)
[2024-07-06 05:43] LABS: IMMATURE GRAN ABSOLUTE AUTO 0.02 K/mm3 (0.00-0.10); IMMATURE GRAN PERCENT AUTO 0 % (0-1); LYMPHOCYTES ABSOLUTE AUTO 2.29 K/mm3 (0.84-5.20); LYMPHOCYTES PERCENT AUTO 39 % (21-46); MONOCYTES ABSOLUTE AUTO 0.61 K/mm3 (0.16-1.47); MONOCYTES PERCENT AUTO 10 % (4-13); NEUTROPHILS ABSOLUTE AUTO 2.75 K/mm3 (1.96-9.15); NEUTROPHILS PERCENT AUTO 47 % (41-73)
[2024-07-06 06:00] LABS: Bun/Creatinine Ratio 9.9 (12.0-20.0); Calcium, Blood 8.2 mg/dL (8.5-10.1); Creatinine, Blood 0.81 mg/dL (0.40-1.00); Potassium, Blood 3.5 mmol/L (3.5-5.5)
[2024-07-06] MEDS ORDERED: Omeprazole 20 MG CapCR PO SCH (06:00)
[2024-07-06 07:28] VITALS: BP 110/61
[2024-07-06] MEDS ORDERED: Enoxaparin 40 MG/0.4 ML SYR SC SCH (09:00)
[2024-07-06] MEDS ORDERED: FLUoxetine HCL 20 MG CAP PO SCH (09:00)
[2024-07-06] MEDS ORDERED: Atorvastatin 40 MG Tab PO SCH (09:00)
[2024-07-06] MEDS ORDERED: LevoFLOXacin 750 MG Tab PO SCH (09:00)
[2024-07-06 12:27] VITALS: BP 108/86
[2024-07-06] MEDS ORDERED: VISBIOME 112.51 EACH PO (14:30)
[2024-07-06] MEDS ORDERED: LEVO750 PO (14:30)
--- NOTE | 2024-07-06 14:42 | NUR ---
DISCHARGE NOTE PT D/C HOME AT 1440. PT PROVIDED W/ VERBAL AND WRITTEN INSTRUCTIONS AND REPORTED UNDERSTANDING. PT A&OX4, VSS, AMB IND, TOLERATING PO, VOIDING, AND DENIED PAIN. PT ON RA, HOME O2 EVAL COMPLETE. BELONGINGS WERE RETURNED AND PT ESCOURTED OUT VIA W/C BY LISA RUIZ.
== END 2024-07-06 14:56 | disposition home or self-care (01) | DRG 193 ==
LOC: ER 02:31 → MEDS 08:33
PROVIDERS: Emergency Medicine; ADMIT Internal Medicine
DX: J18.9 Pneumonia, unspecified organism (principal); J96.01 Acute respiratory failure with hypoxia; J44.0 Chronic obstructive pulmonary disease with (acute) lower respiratory infection; J44.1 Chronic obstructive pulmonary disease with (acute) exacerbation; R65.10 Systemic inflammatory response syndrome (SIRS) of non-infectious origin without acute organ dysfunction; I12.9 Hypertensive chronic kidney disease with stage 1 through stage 4 chronic kidney disease, or unspecified chronic kidney disease; N18.30 Chronic kidney disease, stage 3 unspecified; K21.9 Gastro-esophageal reflux disease without esophagitis; I25.10 Atherosclerotic heart disease of native coronary artery without angina pectoris; I48.0 Paroxysmal atrial fibrillation; E78.5 Hyperlipidemia, unspecified; K44.9 Diaphragmatic hernia without obstruction or gangrene; E11.40 Type 2 diabetes mellitus with diabetic neuropathy, unspecified; E11.22 Type 2 diabetes mellitus with diabetic chronic kidney disease; F32.A Depression, unspecified; Z79.01 Long term (current) use of anticoagulants; Z79.899 Other long term (current) drug therapy
CPT/HCPCS: 0241U; 36415; 71046; 71260; 80048; 80053; 82947; 83605; 83735; 83880; 84100; 84145; 84484; 85025; 85379; 93005; 93010; 94640; 94664; 94760; 94761; 96374; 99285-25; A9270; J1956; J7030; Q9967

== ENCOUNTER 2024-08-13 06:14 | Day surgery (SDC) | payer OTHER ==
[~2024-08-13] VITALS: Ht 144.8 cm; Wt 72.0 kg
[~2024-08-13 06:14] MED LIST changes: +LEVO750 PO; +OZEMPIC0.25 MG/02 SC; +THERA-D2000 UNIT PO
[2024-08-13] MEDS ORDERED: Lactated Ringer's 1,000 ML IV SCH (06:15)
[2024-08-13 06:49] VITALS: BP 118/85
[2024-08-13] MEDS ORDERED: propofoL 20 ML IV ONE (07:21)
[2024-08-13] MEDS ORDERED: FentaNYL Citrate 50 MCG/ML 2 ML Injection ONE (07:25)
[2024-08-13] MEDS ORDERED: Rocuronium Bromide 10 MG/ML 5ML Injection IV ONE (07:26)
[2024-08-13] MEDS ORDERED: Dexamethasone Sod Phos 10 MG/ML 1ML VIAL ONE (07:26)
[2024-08-13] MEDS ORDERED: Lidocaine HCl 2% 20 ML MDV ONE (07:26)
[2024-08-13] MEDS ORDERED: Sugammadex Sodium 200 MG/2ML SDV (100 MG/ML) ONE (07:48)
--- NOTE | 2024-08-13 07:54 | NUR ---
08/13/24 0754 [place]er MAC CASE IN OR [address] CUADRA; SEE ANESTHESIA RECORDS.
[2024-08-13 08:10] VITALS: BP 115/88
[2024-08-13] MEDS ORDERED: Albuterol 2.5 MG/3 ML VIAL ONE (08:12)
[2024-08-13 08:15] VITALS: BP 100/63
[2024-08-13 08:20] VITALS: BP 116/66
[2024-08-13 08:25] VITALS: BP 115/63
[2024-08-13 08:32] VITALS: BP 113/74
--- NOTE | 2024-08-13 08:51 | NUR ---
Patient up to Ambulate independently. Gait steady. Discharge instructions reviewed with patient. Patient verbalizes understanding. Copy given to patient to take home. Discharged via wheelchair to private car for ride home.
--- NOTE | 2024-08-13 08:52 | NUR ---
LUNGS CONTINUE W/ EXP. WHEEZES PT USES ALBUTEROL INHALER BID AND HAS A NEB AT HOME NEEDED. PT ENCOURAGED TO C+DB EVERY HOUR TODAY AFTER GEN. ANESTHESIA AND TO USE NEB NEEDED. PT VERBALIZES UNDERSTANDING
== END 2024-08-13 08:50 | disposition home or self-care (01) ==
LOC: ORSCMMR 06:14 → ORD 07:30 → ORSCMMR 08:50
PROVIDERS: Surgery
PROC: 0DB78ZX Excision of Stomach, Pylorus, Via Natural or Artificial Opening Endoscopic, Diagnostic (ICD-10-PCS; principal; 2024-08-13 07:30)
DX: K21.9 Gastro-esophageal reflux disease without esophagitis (principal); K44.9 Diaphragmatic hernia without obstruction or gangrene; K29.70 Gastritis, unspecified, without bleeding; I12.9 Hypertensive chronic kidney disease with stage 1 through stage 4 chronic kidney disease, or unspecified chronic kidney disease; E11.22 Type 2 diabetes mellitus with diabetic chronic kidney disease; N18.9 Chronic kidney disease, unspecified; I48.91 Unspecified atrial fibrillation; J44.9 Chronic obstructive pulmonary disease, unspecified; I25.2 Old myocardial infarction; Z79.899 Other long term (current) drug therapy; F41.9 Anxiety disorder, unspecified
CPT/HCPCS: 82947; 88305; 88342; J1100; J2704; J3010; J7120

== ENCOUNTER 2024-09-03 06:15 | Day surgery (SDC) | payer OTHER ==
[2024-09-03] VITALS (18 sets, daily range): BP systolic 76–166; BP diastolic 28–91
[~2024-09-03] VITALS: Ht 149.9 cm; Wt 70.6 kg
[~2024-09-03 06:15] MED LIST changes: +Lactated Ringer's 1,000 ML IV SCH; +WEGOVY0.5 MG/0.5 SC
[2024-09-03] MEDS ORDERED: Bupivacaine 0.5% HCl 5 MG/ML 30MLVIAL ONE (07:09)
[2024-09-03] MEDS ORDERED: HYDROmorphone HCl/Pf 1MG SYR IV PRN ×2 (07:30→10:15)
[2024-09-03] MEDS ORDERED: Albuterol 2.5 MG/3 ML VIAL INH PRN (07:30)
[2024-09-03] MEDS ORDERED: FentaNYL Citrate 50 MCG/ML 2 ML Injection ONE (07:32)
[2024-09-03] MEDS ORDERED: Rocuronium Bromide 10 MG/ML 5ML Injection IV ONE ×2 (07:32→09:12)
[2024-09-03] MEDS ORDERED: propofoL 20 ML IV ONE (07:32)
[2024-09-03] MEDS ORDERED: Ondansetron HCl 2 MG / ML 2ML Vial IV PRN ×2 (07:35→10:15)
[2024-09-03] MEDS ORDERED: FentaNYL Citrate 50 MCG/ML 2 ML Injection IV PRN (07:35)
[2024-09-03] MEDS ORDERED: Dexamethasone Sod Phos 10 MG/ML 1ML VIAL ONE (07:40)
[2024-09-03] MEDS ORDERED: HYDROmorphone HCl/Pf 1MG SYR ONE ×2 (08:04→09:01)
[2024-09-03] MEDS ORDERED: Ondansetron HCl 2 MG / ML 2ML Vial ONE (09:59)
[2024-09-03] MEDS ORDERED: Sugammadex Sodium 200 MG/2ML SDV (100 MG/ML) ONE (10:00)
[2024-09-03] MEDS ORDERED: OxyCODONE HCL 5 MG TAB PO PRN (10:15)
[2024-09-03] MEDS ORDERED: Albuterol 2.5 MG/3 ML VIAL ONE (10:37)
[2024-09-03] MEDS ORDERED: OXYC5 PO (12:10)
[2024-09-03] MEDS ORDERED: Albuterol 2.5 MG/3 ML VIAL INH ONE (15:30)
--- NOTE | 2024-09-03 16:13 | NUR ---
DISCHARGE: PT IS VOIDING, AMBULATING, SURGICAL SITES WNL. PT DENIES PAIN VSS, A/O. PT OK FOR DC. IV DC'D WNL , TIP INTACT. DC INSTRUCTIONS GIVEN, DR VASQUEZ ALREADY SENT IN SCRIPTS. PT VERBALIZED UNDERSTANDING. PT LEFT UNIT WITH LISA MIRELES VIA WHEELCHAIR AT ABOUT 1615
== END 2024-09-03 16:30 | disposition home or self-care (01) ==
LOC: MEDS 06:15 → ORSCMMR 06:15 → UNDOADMIN 06:15 → EDSTATUS 07:30 → MEDS 11:20 → SURS 11:20 → ORSCMMR 16:30
PROVIDERS: Surgery
PROC: 0DV44ZZ Restriction of Esophagogastric Junction, Percutaneous Endoscopic Approach (ICD-10-PCS; 2024-09-03)
PROC: 8E0W4CZ Robotic Assisted Procedure of Trunk Region, Percutaneous Endoscopic Approach (ICD-10-PCS; 2024-09-03)
PROC: 0BUT4JZ Supplement Diaphragm with Synthetic Substitute, Percutaneous Endoscopic Approach (ICD-10-PCS; principal; 2024-09-03 07:30)
DX: K44.9 Diaphragmatic hernia without obstruction or gangrene (principal); K21.9 Gastro-esophageal reflux disease without esophagitis; J44.9 Chronic obstructive pulmonary disease, unspecified; N18.30 Chronic kidney disease, stage 3 unspecified; I12.9 Hypertensive chronic kidney disease with stage 1 through stage 4 chronic kidney disease, or unspecified chronic kidney disease; I48.0 Paroxysmal atrial fibrillation; E11.22 Type 2 diabetes mellitus with diabetic chronic kidney disease; E78.5 Hyperlipidemia, unspecified; F41.9 Anxiety disorder, unspecified; Z79.01 Long term (current) use of anticoagulants; Z86.711 Personal history of pulmonary embolism; Z79.85 Long-term (current) use of injectable non-insulin antidiabetic drugs
CPT/HCPCS: 82947; 94640; 94664; 94760; C1781; J1100; J1171; J2405; J2704; J3010; J7120

== ENCOUNTER → 2025-01-23 | Outpatient (CLI) | payer OTHER ==
[~2025-01-23] MED LIST changes: -Lactated Ringer's 1,000 ML IV SCH; +OXYC5 PO
[2025-01-23 12:10] LABS: Alanine Aminotransfer (ALT/SGP 29 U/L (12-78); Albumin, Blood 3.5 g/dL (3.4-5.0); Albumin/Globulin Ratio 0.9 (0.8-1.8); Anion Gap 17 mmol/L (6-16); Aspartate Aminotrans (AST/SGOT 26 U/L (12-37); Bilirubin, Total 0.5 mg/dL (0.1-1.0); Blood Urea Nitrogen 20 mg/dL (8-24); CHOL/HDL RATIO 1.8; CO2, Blood 28 mmol/L (21-32); Calcium, Blood 9.8 mg/dL (8.5-10.1); Chloride, Blood 100 mmol/L (98-108); Cholesterol 134 mg/dL (50-200); Creatinine, Blood 1.27 mg/dL (0.40-1.00); Globulin, Blood 3.9 g/dL (2.2-4.0); Glucose, Blood 156 mg/dL (70-99); HDL Cholesterol 73 mg/dL (>39); LDL/HDL RATIO 0.6; Low Density Lipoprotein Chol 42 mg/dL (<110); Potassium, Blood 3.6 mmol/L (3.5-5.5); Sodium, Blood 141 mmol/L (136-145); Total Protein, Blood 7.4 g/dL (6.4-8.2); Triglycerides 95 mg/dL (30-160); Very Low Density Lipoprot Chol 19 mg/dL (6-32)
== END ==
LOC: LAB 11:38 → LAB SHORT 11:38
PROVIDERS: Physician Assistant
DX: E78.2 Mixed hyperlipidemia (principal); E11.22 Type 2 diabetes mellitus with diabetic chronic kidney disease; N18.9 Chronic kidney disease, unspecified; E11.59 Type 2 diabetes mellitus with other circulatory complications; E11.65 Type 2 diabetes mellitus with hyperglycemia
CPT/HCPCS: 80053; 80061; 83036